=== PATIENT | male | born 1965 | race Caucasian/White ===

== ENCOUNTER → 2018-04-23 13:43 | Outpatient (CLI) | payer OTHER, SELFPAY ==
[2018-04-23 14:22] LABS: Basophils % 0.3 % (0.1-2.0); Eosinophils # 0.1 K/mm3 (0.0-0.4); Eosinophils % 1.8 % (0.1-12.0); Hematocrit 44.1 % (42.0-52.0); Hemoglobin 13.8 g/dL (14.1-18.0); Lymphocytes # 1.8 K/mm3 (0.7-4.5); Lymphocytes % 30.2 % (10-50); Mean Corpuscular HGB Conc 31.3 g/dL (31.8-35.4); Mean Corpuscular Volume 95.9 fl (80-94); Mean Platelet Volume 7.7 fl (7.4-10.4); Monocytes # 0.5 K/mm3 (0.1-1.0); Neutrophils # 3.6 K/mm3 (1.8-7.8); Neutrophils % 59.7 % (37.0-80.0); Platelet Count 396 K/mm3 (142-424); Red Cell Distribution Width 13.9 % (11.5-17.5)
[2018-04-23 14:30] LABS: Amphetamine/Metha Screen,Urine Negative ng/mL (<1000); Barbiturates Screen,Urine Negative ng/mL (<200); Benzodiazepines Screen,Urine Negative ng/mL (<200); Cannabinoid Screen,Urine Negative ng/mL (<50); Cocaine Screen,Urine Negative ng/mL (<300); Methadone Screen,Urine Negative ng/mL (<300); Opiate Screen,Urine Negative ng/mL (<300); Phencyclidine Screen,Urine Negative ng/mL (<25)
[2018-04-23 15:28] LABS: Alanine Aminotransferase 30 U/L (12-78); Albumin Level 3.7 gm/dL (3.4-5.0); Albumin/Globulin Ratio 1.1 (1.1-1.8); Alkaline Phosphatase 96 U/L (46-116); Anion Gap -3.2 mEq/L (5-15); Aspartate Amino Transferase 25 U/L (15-37); Bilirubin,Total 0.2 mg/dL (0.2-1.0); Blood Urea Nitrogen 11 mg/dL (7-18); Calcium 9.1 mg/dL (8.5-10.1); Carbon Dioxide 25 mmol/L (21.0-32.0); Chloride 109 mmol/L (98-107); Cholesterol 313 mg/dL (140-200); Creatinine,Serum 0.86 mg/dL (0.70-1.30); Estimated Glomerular Filt Rate 93 ml/min (>60); Free T4 (Free Thyroxine) 1.05 ng/dl (0.76-1.46); GFR (African American) 112 ML/MIN (>60); Globulin 3.5 gm/dl (1.3-3.2); Glucose 103 mg/dL (74-106); HDL Cholesterol 52 mg/dL (27-67); LDL Cholesterol 231 mg/dL (0-130); Phenytoin (Dilantin) 5.1 ug/mL (10-20); Potassium 4.8 mmoL/L (3.5-5.1); Sodium 126 mmol/L (136-145); Thyroid Stimulating Hormone 1.73 uIU/ml (0.358-3.740); Total Protein,Serum 7.2 gm/dL (6.4-8.2); Triglycerides 151 mg/dL (30-200); VLDL Cholesterol 30 mg/dL (0-40)
[2018-04-25 07:03] LABS: PSA, Free 0.16 ng/mL; Prostate Specific Ag 0.5 ng/mL (0.0-4.0)
== END ==
PROVIDERS: Visit Provider Emergency Medicine
DX: I10 Essential (primary) hypertension (principal); Z79.899 Other long term (current) drug therapy; R56.9 Unspecified convulsions; E78.49 Other hyperlipidemia; I51.9 Heart disease, unspecified; J44.9 Chronic obstructive pulmonary disease, unspecified; G89.29 Other chronic pain; Z72.0 Tobacco use
CPT/HCPCS: 80053; 80061; 80185; 80305; 84153; 84154; 84439; 84443; 85025

== ENCOUNTER → 2018-05-21 14:47 | Outpatient (CLI) | payer OTHER, SELFPAY ==
[2018-05-21 15:15] VITALS: PULSE 68; PULSE 72
== END ==
PROVIDERS: PCP Emergency Medicine; Visit Provider Emergency Medicine
DX: J44.9 Chronic obstructive pulmonary disease, unspecified (principal)
CPT/HCPCS: 94060; 94640

== ENCOUNTER → 2018-06-02 07:45 | Outpatient (CLI) | payer OTHER, SELFPAY ==
--- NOTE | 2018-06-02 07:47 | US_ITS ---
US gallbladder HISTORY: ITS.REASON: RUQ Pain ORDERING PHYSICIAN: Gab Worthington MD PATIENT AGE: 52 years Comparison: None FINDINGS: PANCREAS: Unremarkable. No obvious mass or abnormal fluid collection. No ductal dilatation LIVER: No focal liver lesions demonstrated. Homogeneous echogenicity. No intrahepatic biliary ductal dilatation evident RIGHT KIDNEY: Unremarkable. Normal size and echogenicity. No hydronephrosis GALLBLADDER: No gallstones, gallbladder wall thickening, pericholecystic fluid, or biliary dilatation. There is a small amount gallbladder sludge nonspecific IMPRESSION: Trace gallbladder sludge otherwise essentially negative right upper quadrant
== END ==
PROVIDERS: PCP Emergency Medicine; Visit Provider Emergency Medicine
DX: R10.11 Right upper quadrant pain (principal)
CPT/HCPCS: 76705

== ENCOUNTER → 2018-09-02 10:21 | Outpatient (POV) | payer OTHER, SELFPAY | PROVIDERS: Visit Provider Internal Medicine | DX: Z00.00 Encounter for general adult medical examination without abnormal findings (principal) ==

== ENCOUNTER → 2018-09-16 09:27 | Outpatient (CLI) | payer OTHER, SELFPAY ==
--- NOTE | 2018-09-16 | CI_ITS ---
Cerebrovascular Exam IMPRESSIONS 1. Study suggests 70-99% stenosis involving the left internal carotid artery. 2. Study suggests 50-69% stenosis involving the right internal carotid artery. 3. Study suggests >50% stenosis involving the right external carotid artery and the left external carotid artery. 4. Right side thyroid cyst. Carotid duplex study. Complete study and Doppler flow study including spectral analysis, color and montgomery scale imaging. Height: Height: 165.1cm. Height: 65in. Weight: Weight: 78.9kg. Weight: 173.6lb. Body mass index: BMI: 29kg/m^2. Body surface area: BSA: 1.92m^2. Location: Vascular laboratory. Patient status: Outpatient. CRITICAL FINDINGS - Reported to: [facility] - Read back and verified. - 09/16/18 - 1030 - 70-99% Left ICA pt setup to see Dr Worthington at 09/18/18 at 930. Incidental findings: A thyroid cyst in the right lobe is noted incidentally. Tables: Arterial flow: + +--------+--------+ Location V sys V ed + +--------+--------+ Right CCA - proximal 94.8cm/s 21cm/s + +--------+--------+ Right CCA - distal 90.4cm/s 27cm/s + +--------+--------+ Right ECA 162cm/s -------- + +--------+--------+ Right ICA - proximal 120cm/s 30cm/s + +--------+--------+ Right ICA - mid 145cm/s 31.4cm/s + +--------+--------+ Right ICA - distal 111cm/s 34.7cm/s + +--------+--------+ Right vertebral 44.7cm/s -------- + +--------+--------+ Left CCA - proximal 104cm/s 21cm/s + +--------+--------+ Left CCA - distal 124cm/s 33.3cm/s + +--------+--------+ Left ECA 153cm/s -------- + +--------+--------+ Left ICA - proximal 333cm/s 91.1cm/s + +--------+--------+ Left ICA - mid 243cm/s 88.4cm/s + +--------+--------+ Left ICA - distal 84.5cm/s 30.4cm/s + +--------+--------+ Left vertebral 36.7cm/s -------- + +--------+--------+ Velocity ratios: + + + + + + Right, V sys Right, V ed Left, V sys Left, V ed + + + + + + Max ICA/dist CCA 1.6 1.29 2.69 2.74 + + + + + + (Report amended ) Electronically signed by: Kenyon Ramirez [id number]
--- NOTE | 2018-09-16 10:16 | CT_ITS ---
CT lung screening EXAM: CT LUNG LOW DOSE WO CONTRAST HISTORY: ITS.REASON: CURRENT TOBACCO USE ORDERING PHYSICIAN: Stevie Matute MD PATIENT AGE: 53 years COMPARISON: None TECHNIQUE: The exam was performed on a GE Light Speed [address] scanner using 2.90 mGy CTDI. A low dose helical CT CHEST was performed on a multi-detector scanner. All CT scans at the facility use one or more dose reduction, viz: automated exposure control, ma/kV adjustment per patient size (including targeted exams where dose is matched to indication, i.e. head), or iterative reconstruction technique. The LDCT was performed in a facility that meets the criteria for the screening program. Data regarding this exam was submitted to ACR which is an approved registry. The order for this exam indicates that it came as a result of a lung cancer screening counseling shard decision-making visit that included all the elements required of such a visit including smoking cessation. The radiologist interpreting this exam meets the CMS criteria for the LDCT lung cancer screening program. The exam is reported using the Lung-RADS classification scale and reported to the ACR registry. NOTE: This study was performed for the specific purposes of lung cancer screening and is not an alternative to diagnostic chest CT. RADIATION DOSE: CTDI vol(CT dose Index-volume) = 2.90mG DLP (Dose Length Product) = 107.33 mGcm FINDINGS: There are scattered small mediastinal lymph nodes largest on the left at 1.8 x 1 cm. There are extensive coronary artery calcifications. Some of the mediastinal lymph nodes are calcified. Changes of COPD and centrilobular emphysema with scattered small parenchymal opacities which are nonspecific some of which may be due to scarring. There is coarsening of interstitial markings. There is a spiculated nodular density in the right upper lobe series 4 #36. This measures 10 x 9 mm and has a suspicious appearance. There is an additional spiculated nodular opacity in the right upper lobe laterally at 10 x 8 mm series 4 #41. There are other scattered smaller parenchymal opacities 3 to 5 mm noted. There is a calcified granuloma in the right upper lobe posteriorly. IMPRESSION: 1. Lung RADS Category: 4, suspicious regarding 2 somewhat spiculated opacities in the right upper lobe. This could be due to areas of scarring however neoplasm is an additional consideration 2. Other findings: COPD/centrilobular emphysema. Extensive coronary artery calcification. Mildly prominent mediastinal lymph node on the left RECOMMENDATIONS: PET/CT suggested for further evaluation. If this is not performed then, would at least recommend a [address] follow-up without and with contrast
== END ==
PROVIDERS: PCP Emergency Medicine; Visit Provider Internal Medicine
DX: R09.89 Other specified symptoms and signs involving the circulatory and respiratory systems (principal); Z12.2 Encounter for screening for malignant neoplasm of respiratory organs; Z87.891 Personal history of nicotine dependence
CPT/HCPCS: 93880

== ENCOUNTER → 2018-09-26 10:58 | Outpatient (CLI) | payer OTHER, SELFPAY ==
--- NOTE | 2018-09-26 11:08 | XR_ITS ---
XR shoulder LT min 2V COMPARISON: None HISTORY: Left shoulder pain TECHNIQUE: 3 views left shoulder FINDINGS: The clavicle is intact and the AC joint appears normal. The humeral head and glenoid appear normal and there are no soft tissue calcifications. IMPRESSION: Negative Left shoulder
[2018-09-26 13:23] LABS: Thyroid Stimulating Hormone 1.02 uIU/ml (0.358-3.740)
== END ==
PROVIDERS: Visit Provider Otolaryngology
DX: E04.1 Nontoxic single thyroid nodule (principal); M25.512 Pain in left shoulder
CPT/HCPCS: 36415; 73030; 84439; 84443

== ENCOUNTER → 2019-01-02 14:09 | Outpatient (CLI) | payer OTHER, SELFPAY ==
[2019-01-02 16:07] LABS: Amphetamine/Metha Screen,Urine Negative ng/mL (<1000); Barbiturates Screen,Urine Negative ng/mL (<200); Benzodiazepines Screen,Urine Negative ng/mL (<200); Cannabinoid Screen,Urine Negative ng/mL (<50); Cocaine Screen,Urine Negative ng/mL (<300); Methadone Screen,Urine Negative ng/mL (<300); Opiate Screen,Urine Negative ng/mL (<300); Phencyclidine Screen,Urine Negative ng/mL (<25)
== END ==
PROVIDERS: Visit Provider Nurse Practitioner Family
DX: Z79.899 Other long term (current) drug therapy (principal)
CPT/HCPCS: 80305

== ENCOUNTER → 2019-04-20 13:49 | Outpatient (CLI) | payer OTHER, SELFPAY ==
[2019-04-20 14:30] LABS: Basophils % 0.2 % (0.1-2.0); Eosinophils # 0.1 K/mm3 (0.0-0.4); Eosinophils % 1.8 % (0.1-12.0); Lymphocytes # 2.2 K/mm3 (0.7-4.5); Lymphocytes % 28.9 % (10-50); Mean Corpuscular HGB Conc 31.8 g/dL (31.8-35.4); Mean Corpuscular Hemoglobin 30.2 pg (27.0-31.2); Mean Platelet Volume 8.4 fl (7.4-10.4); Monocytes # 0.6 K/mm3 (0.1-1.0); Monocytes % 7.2 % (1.7-9.3); Neutrophils # 4.7 K/mm3 (1.8-7.8); Neutrophils % 61.7 % (37.0-80.0); Platelet Count 345 K/mm3 (142-424); Red Blood Count 4.32 M/mm3 (4.60-6.20); Red Cell Distribution Width 13.7 % (11.5-17.5); White Blood Count 7.6 K/mm3 (4.8-10.8)
[2019-04-20 15:24] LABS: Alanine Aminotransferase 26 U/L (12-78); Albumin Level 3.7 gm/dL (3.4-5.0); Albumin/Globulin Ratio 1.2 (1.1-1.8); Alkaline Phosphatase 87 U/L (46-116); Anion Gap 14.2 mEq/L (5-15); Aspartate Amino Transferase 27 U/L (15-37); Bilirubin,Total 0.2 mg/dL (0.2-1.0); Blood Urea Nitrogen 7 mg/dL (7-18); Calcium 8.5 mg/dL (8.5-10.1); Carbon Dioxide 23 mmol/L (21.0-32.0); Chloride 102 mmol/L (98-107); Chol/HDL Ratio 3.1 (1-3.5); Cholesterol 159 mg/dL (140-200); Creatinine,Serum 0.75 mg/dL (0.70-1.30); Estimated Glomerular Filt Rate 108 ml/min (>60); GFR (African American) 131 ML/MIN (>60); Globulin 3.1 gm/dl (1.3-3.2); Glucose 95 mg/dL (74-106); HDL Cholesterol 52 mg/dL (27-67); LDL Cholesterol 84 mg/dL (0-130); Phenytoin (Dilantin) 7.9 ug/mL (10-20); Potassium 4.2 mmoL/L (3.5-5.1); Sodium 135 mmol/L (136-145); T4 (Thyroxine) 7.6 ug/dl (4.7-13.3); Thyroid Stimulating Hormone 2.24 uIU/ml (0.358-3.740); Total Protein,Serum 6.8 gm/dL (6.4-8.2); Triglycerides 115 mg/dL (30-200); VLDL Cholesterol 23 mg/dL (0-40)
[2019-04-21 09:20] LABS: Vitamin D 25 Hydroxy 33.6 ng/mL (30.0-100.0)
== END ==
PROVIDERS: Visit Provider Emergency Medicine
DX: M54.2 Cervicalgia (principal); M54.9 Dorsalgia, unspecified; R56.9 Unspecified convulsions; Z79.899 Other long term (current) drug therapy
CPT/HCPCS: 80053; 80061; 80185; 82652; 84436; 84443; 85025

== ENCOUNTER → 2019-04-29 10:18 | Outpatient (CLI) | payer OTHER, SELFPAY ==
--- NOTE | 2019-04-29 10:21 | XR_ITS ---
PROCEDURE: XR HIP LT 2-3V W/PELVIS CLINICAL INDICATION: left hip pain COMPARISON: PELAP PELVIS AP ONLY from 04/19/2014 FINDINGS: No fracture or dislocation. There is slight decrease in the superior hip joint space which may be seen with early osteoarthritis. There is a subtle area curvilinear calcification in the subcortical region of the left femoral head. This is nonspecific but could be seen with avascular necrosis. MRI may be of further value. Sclerotic densities which may represent bone island is present in the right femoral head and in the right intertrochanteric region of the hip. IMPRESSION: 1. Mild osteoarthritis of the left hip. 2. Curvilinear area of sclerosis in the left femoral head. Consider MRI to exclude the possibility of avascular necrosis in this patient with left hip pain Dictated by: Kenyon Ramirez MD 04/29/2019 18:39 Electronically signed by Kenyon Ramirez MD in [place] 04/29/2019 18:39
== END ==
PROVIDERS: PCP Emergency Medicine; Visit Provider Orthopaedic Surgery
DX: M25.552 Pain in left hip (principal)
CPT/HCPCS: 73502

== ENCOUNTER 2019-05-01 15:06 | Outpatient (RCR) | payer OTHER, SELFPAY ==
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
== END 2019-05-01 15:10 | disposition home or self-care (01) ==
LOC: PT 15:06
PROVIDERS: Visit Provider Emergency Medicine
DX: M54.2 Cervicalgia (principal)
CPT/HCPCS: 97163

== ENCOUNTER → 2019-05-08 14:17 | Outpatient (CLI) | payer OTHER, SELFPAY ==
--- NOTE | 2019-05-08 14:22 | MR_ITS ---
PROCEDURE: MR HIP LT WO CON CLINICAL INDICATION: Evaluate for avascular necrosis rec. by Dr Ramirez Bilateral hip pain left worse than right, left leg pain numbness and tingling, abnormal radiograph suggesting avascular necrosis. COMPARISON: XR HIP LT 2-3V W/PELVIS from 04/29/2019 TECHNIQUE: Routine multiplanar multi echo sequences are performed without gadolinium enhancement. FINDINGS: There is a small geographic area of abnormal bone marrow signal intensity in the subcortical region of the left femoral head hyperintense on T2 and hypointense on T1 with a curvilinear configuration. No fracture or dislocation. No significant effusion. There is slight increased T2 signal within the soft tissues at the greater trochanteric region on the left which could be due to mild trochanteric bursitis. IMPRESSION: 1. 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 Possible trochanteric bursitis on the left Dictated by: Kenyon Ramirez MD 05/09/2019 00:57 Electronically signed by Kenyon Ramirez MD in [place] 05/09/2019 08:25
== END ==
PROVIDERS: PCP Emergency Medicine; Visit Provider Orthopaedic Surgery
DX: M25.552 Pain in left hip (principal)
CPT/HCPCS: 73721

== ENCOUNTER → 2019-05-12 08:48 | Outpatient (POV) | payer OTHER, SELFPAY ==
[2019-05-12 09:14] VITALS: BP 133/68; PULSE 63; RESP 18; O2SAT 99; BMI 26.6
--- NOTE | 2019-05-12 11:15 | HMH.PMCON ---
Assessment and Plan (1) Degenerative joint disease (DJD) of lumbar spine Current visit: Yes Status: Chronic Category: Medical Code(s): M47.816 - Spondylosis without myelopathy or radiculopathy, lumbar region (2) Lumbar radiculopathy Current visit: Yes Status: Chronic Category: Medical Code(s): M54.16 - Radiculopathy, lumbar region (3) Neck pain Current visit: Yes Status: Acute Category: Medical Code(s): M54.2 - Cervicalgia (4) Bilateral arm pain Current visit: Yes Status: Acute Category: Medical Code(s): M79.601 - Pain in right arm; M79.602 - Pain in left arm - Assessment and plan all Dx Assessment and Plan for all problems:: We will schedule the patient for a cervical MRI. Patient and I did discuss his MRI of his left hip. Patient is not interested in following up with any orthopedic surgeons at this time. He says he will discuss his MRI results with Dr. Worthington. He would like to undergo cervical MRI, however, and determine a plan of care at that time. Patient and I did discuss that we will not be prescribing oral medications at this time. Patient says he is not interested in injective or interventional therapies. I am concerned that the patient will not follow back up with us after his MRI results. We did, however, schedule him for a return visit. If in the event that he does not follow-up with us, I will suggest Dr. Worthington contact the patient concerning his MRI results. The patient has been instructed to contact the clinic if he has any concerns before his next appointment. Dr. Chinchilla has reviewed this note and agrees with this plan of care. This note was dictated using voice recognition software and make contain errors or omissions. HPI - Data of Consult Patient: new to practice Consult date: 05/12/19 Requesting Physician: Samantha Díaz APRN Primary Care Provider: Gab Worthington MD - Consult Narrative Reason for consult: Low back pain, bilateral leg pain, bilateral arm pain History of present illness: Mr. Hess is a 53 year old male who presents today for complaints of low back pain with radiation into his bilateral legs. Patient says he also has neck pain with radiation into his bilateral arms. Patient says his pain is been ongoing for greater than 10 years. He says the pain has progressively gotten worse. He is unable to stand or walk for more than 5 minutes without developing severe pain with numbness and tingling to his bilateral feet. Patient does says the pain is worse on the left side. He says that he has been medically managed in the past with gabapentin. He says he does not get enough relief with gabapentin unless he is prescribed Percocet with gabapentin. He also says that Dr. Worthington recently ordered him [place], however he says that he is allergic to [place]. Patient later reveals that he has been taking [place] and it has given him some relief, however. Patient says he is not interested in any type of injective or interventional therapies at this time. He says he would prefer to only take oral opiates. He does rate his pain an 8 out of 10 today. He says he has tried physical therapy along with ice and heat therapies and a TENS unit. He says that he cannot withstand any type of injective therapy due to fear of needles. CC: Samantha Díaz APRN [facility] History I have reviewed the patient's past medical history: Yes Medical History: Reports:: Anxiety, Congestive Heart Failure, Chronic Obstructive Pulmonary Disease (COPD), Coronary Artery Disease, Depression, Gastroesophageal Reflux Disease(GERD), Hyperlipidemia, Hypertension, Myocardial Infarction, Seizures *Have you ever received a pneumonia vaccine?: Yes *Have you received a flu vaccine this season?: Yes Other Medical History: Reports: Arthritis Other Surgeries: Yes: Cardiac Catheterization, Coronary Stent Amputation: No Fractures: Yes - *Social History Smoking Status: Never smoker Tobacco Type: cigarettes # Pack
== END ==
PROVIDERS: PCP Emergency Medicine; Visit Provider Clinical Nurse Specialist Family Health
DX: M47.816 Spondylosis without myelopathy or radiculopathy, lumbar region (principal); M54.16 Radiculopathy, lumbar region; M54.2 Cervicalgia; M79.601 Pain in right arm; M79.602 Pain in left arm
CPT/HCPCS: 99202

== ENCOUNTER → 2019-05-26 16:50 | Outpatient (CLI) | payer OTHER, SELFPAY ==
[2019-05-26 18:19] LABS: Amphetamine/Metha Screen,Urine Negative ng/mL (<1000); Barbiturates Screen,Urine Negative ng/mL (<200); Benzodiazepines Screen,Urine Negative ng/mL (<200); Cannabinoid Screen,Urine Negative ng/mL (<50); Cocaine Screen,Urine Negative ng/mL (<300); Methadone Screen,Urine Negative ng/mL (<300); Opiate Screen,Urine Negative ng/mL (<300); Phencyclidine Screen,Urine Negative ng/mL (<25)
== END ==
PROVIDERS: Visit Provider Emergency Medicine
DX: M54.16 Radiculopathy, lumbar region (principal)
CPT/HCPCS: 80305

== ENCOUNTER → 2019-06-17 17:29 | Outpatient (CLI) | payer OTHER, SELFPAY ==
[2019-06-17 19:58] LABS: Amphetamine/Metha Screen,Urine Negative ng/mL (<1000); Barbiturates Screen,Urine Negative ng/mL (<200); Benzodiazepines Screen,Urine Negative ng/mL (<200); Cannabinoid Screen,Urine Negative ng/mL (<50); Cocaine Screen,Urine Negative ng/mL (<300); Methadone Screen,Urine Negative ng/mL (<300); Opiate Screen,Urine Negative ng/mL (<300); Phencyclidine Screen,Urine Negative ng/mL (<25)
== END ==
PROVIDERS: Visit Provider Emergency Medicine
DX: M19.90 Unspecified osteoarthritis, unspecified site (principal); Z79.899 Other long term (current) drug therapy
CPT/HCPCS: 80305

== ENCOUNTER → 2020-02-24 13:41 | Outpatient (CLI) | payer OTHER, SELFPAY ==
--- NOTE | 2020-02-24 13:43 | CA_ITS ---
APPROVED REPORT Kitchen Mechanic: TAMARA Laterality: Bilateral Indications: bruit Risk Factors PROMISE Doppler Spectral Velocity Analysis ECA (R) 182.80/30.70 cm/s ECA (L) 193.60/28.50 cm/s dICA (R) 57.10/20.50 cm/s dICA (L) 109.50/28.50 cm/s Alisia (R) 83.50/27.00 cm/s Alisia (L) 183.90/38.50 cm/s pICA (R) 205.00/35.90 cm/s pICA (L) 543.20/198.10 cm/s dCCA (R) 133.20/25.60 cm/s dCCA (L) 136.60/30.00 cm/s pCCA (R) 107.60/29.50 cm/s pCCA (L) 121.50/30.00 cm/s Vert (R) 61.50/18.80 cm/s Vert (L) 55.70/17.10 cm/s ICA/CCA 1.54 ICA/CCA 3.98 Findings Duplex evaluation demonstrates stenosis of the right proximal internal carotid artery in the range of 50-69% with PSV =140 cm/sec, EDV <100 cm/sec, and IC/CC Ratio <4.0. Duplex evaluation demonstrates stenosis of the left proximal internal carotid artery in the range of 70-99% with PSV =140 cm/sec, EDV =100 cm/sec, or IC/CC Ratio =4.0. Conclusion Duplex evaluation demonstrates stenosis of the right proximal internal carotid artery in the range of 50-69% with PSV =140 cm/sec, EDV <100 cm/sec, and IC/CC Ratio <4.0. Duplex evaluation demonstrates stenosis of the left proximal internal carotid artery in the range of 70-99% with PSV =140 cm/sec, EDV =100 cm/sec, or IC/CC Ratio =4.0. Electronically signed by : Kenyon Ramirez MD 02/24/2020 17:02:19
== END ==
PROVIDERS: PCP Emergency Medicine; Visit Provider Family Medicine
DX: R09.89 Other specified symptoms and signs involving the circulatory and respiratory systems (principal)
CPT/HCPCS: 93880

== ENCOUNTER → 2020-03-09 13:47 | Outpatient (CLI) | payer OTHER, SELFPAY ==
--- NOTE | 2020-03-09 13:50 | XR_ITS ---
PROCEDURE: XR HIP LT 2-3V W/PELVIS CLINICAL INDICATION: left hip pain COMPARISON: CR XR HIP LT 2-3V W/PELVIS from 04/29/2019 MR MR HIP LT WO CON from 05/08/2019 FINDINGS: No acute fracture or dislocation. There is some subtle sclerotic density noted along the head of the femur consistent with avascular necrosis which is not significantly changed.. Small bone island suspected in the intertrochanteric region of the right hip and along the left mid aspect of the sacrum. IMPRESSION: No change sclerosis of the left femoral head subcortical region consistent with avascular necrosis. Dictated by: Kenyon Ramirez MD 03/09/2020 15:15 Kenyon Ramirez MD in [place] 03/09/2020 15:15
== END ==
PROVIDERS: PCP Emergency Medicine; Visit Provider Orthopaedic Surgery
DX: M25.552 Pain in left hip (principal)
CPT/HCPCS: 73502

== ENCOUNTER → 2020-03-30 18:47 | Outpatient (CLI) | payer OTHER, SELFPAY ==
[2020-03-30 19:05] LABS: Basophils % 0.2 % (0.1-2.0); Eosinophils # 0.2 K/mm3 (0.0-0.4); Eosinophils % 2.6 % (0.1-12.0); Hematocrit 41.8 % (42.0-52.0); Hemoglobin 13.7 g/dL (14.1-18.0); Lymphocytes # 2.4 K/mm3 (0.7-4.5); Mean Corpuscular HGB Conc 32.8 g/dL (31.8-35.4); Mean Corpuscular Hemoglobin 31.2 pg (27.0-31.2); Mean Corpuscular Volume 95.4 fl (80-94); Mean Platelet Volume 7.8 fl (7.4-10.4); Monocytes # 0.5 K/mm3 (0.1-1.0); Monocytes % 7.2 % (1.7-9.3); Neutrophils # 4.3 K/mm3 (1.8-7.8); Neutrophils % 58.1 % (37.0-80.0); Platelet Count 299 K/mm3 (142-424); Red Blood Count 4.39 M/mm3 (4.60-6.20); Red Cell Distribution Width 13.8 % (11.5-17.5); White Blood Count 7.5 K/mm3 (4.8-10.8)
[2020-03-30 19:15] LABS: Alanine Aminotransferase 27 U/L (12-78); Albumin Level 4.4 g/dl (3.5-5.0); Albumin/Globulin Ratio 1.6 (1.1-1.8); Alkaline Phosphatase 94 U/L (38-126); Anion Gap 14.4 mEq/L (5-15); Aspartate Amino Transferase 38 U/L (17-59); Bilirubin,Total 0.3 mg/dl (0.2-1.3); Blood Urea Nitrogen 11 mg/dl (9-20); Calcium 9.4 mg/dl (8.4-10.2); Carbon Dioxide 24 mmol/L (22.0-30.0); Chloride 103 mmol/L (98-107); Chol/HDL Ratio 3.7 (1-3.5); Cholesterol 180 mg/dl (140-200); Estimated Glomerular Filt Rate 87 ml/min (>60); GFR (African American) 106 ML/MIN (>60); Globulin 2.7 g/dL (1.3-3.2); Glucose 107 mg/dl (74-100); HDL Cholesterol 49 mg/dl (40-60); Phenytoin (Dilantin) 4.2 ug/ml (10-20); Potassium 4.4 mmoL/L (3.5-5.1); Sodium 137 mmol/L (136-145); Total Protein,Serum 7.1 g/dl (6.3-8.2); Triglycerides 241 mg/dl (30-150); VLDL Cholesterol 48 mg/dL (0-40)
[2020-03-30 19:24] LABS: Direct LDL Cholesterol 105.66 mg/dL (100-129)
[2020-03-30 19:45] LABS: Thyroid Stimulating Hormone 0.97 uIU/mL (0.465-4.68)
[2020-03-30 19:58] LABS: Free T4 (Free Thyroxine) 1.13 ng/dl (0.78-2.19)
== END ==
PROVIDERS: Visit Provider Emergency Medicine
DX: J44.9 Chronic obstructive pulmonary disease, unspecified (principal); E66.3 Overweight; M54.2 Cervicalgia; M87.052 Idiopathic aseptic necrosis of left femur; M54.16 Radiculopathy, lumbar region; Z79.899 Other long term (current) drug therapy; Z72.0 Tobacco use
CPT/HCPCS: 80053; 80061; 80185; 84439; 84443; 85025

== ENCOUNTER 2020-04-12 17:26 | Emergency (ER) | payer OTHER, SELFPAY ==
[2020-04-12 17:38] VITALS: BP 132/86; PULSE 83; RESP 18; TEMP 36.7; O2SAT 97; BMI 28.1
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
[2020-04-12 18:08] VITALS: BP 132/86; PULSE 83; RESP 18; TEMP 36.7; O2SAT 97
== END 2020-04-12 18:09 | disposition home or self-care (01) ==
PROVIDERS: Emergency Provider Emergency Medicine; PCP Emergency Medicine
DX: S06.0X0A Concussion without loss of consciousness, initial encounter (principal); W22.8XXA Striking against or struck by other objects, initial encounter; H53.8 Other visual disturbances; R11.0 Nausea; R42 Dizziness and giddiness; Z88.8 Allergy status to other drugs, medicaments and biological substances
CPT/HCPCS: 99281

== ENCOUNTER → 2020-05-13 15:18 | Outpatient (CLI) | payer OTHER, SELFPAY ==
[2020-05-13 19:42] LABS: Phenytoin (Dilantin) 9.6 ug/ml (10-20)
== END ==
PROVIDERS: Visit Provider Emergency Medicine
DX: R56.9 Unspecified convulsions (principal)
CPT/HCPCS: 80185

== ENCOUNTER 2021-02-25 21:21 | Emergency (ER) | payer OTHER, SELFPAY ==
--- NOTE | 2021-02-25 19:09 | ECG_ITS ---
APPROVED REPORT Exam: Resting ECG HR:83 bpm ECG Measurements Heart Rate 83 AXES ND 180 P 50 QRSd 96 QRS 49 QT 382 T 97 QTc 448 Conclusion Normal sinus rhythm Cannot rule out Anterior infarct, age undetermined T wave abnormality, consider lateral ischemia Abnormal ECG Electronically signed by : Jim Bryant MD 02/26/2021 08:55:48
--- NOTE | 2021-02-25 21:15 | ECG_ITS ---
APPROVED REPORT Exam: Resting ECG HR:86 bpm ECG Measurements Heart Rate 86 AXES IA 178 P 52 QRSd 94 QRS 50 QT 370 T 94 QTc 442 Conclusion Normal sinus rhythm Cannot rule out Anterior infarct, age undetermined Abnormal ECG Electronically signed by : Jim Bryant MD 02/28/2021 17:40:43
[2021-02-25 21:20] VITALS: BP 167/87; PULSE 91; RESP 19; TEMP 37.1; O2SAT 97; BMI 30.7
[2021-02-25 21:54] VITALS: BMI 28.7
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
[2021-02-25 22:05] LABS: Basophils % 0.2 % (0.1-2.0); Chloride 101 mmol/L (98-107); Eosinophils # 0.2 K/mm3 (0.0-0.4); Eosinophils % 1.8 % (0.1-12.0); Hematocrit 41.2 % (42.0-52.0); Hemoglobin 13.4 g/dL (14.1-18.0); Lymphocytes # 2.5 K/mm3 (0.7-4.5); Lymphocytes % 26.8 % (10-50); Mean Corpuscular HGB Conc 32.6 g/dL (31.8-35.4); Mean Corpuscular Hemoglobin 31.4 pg (27.0-31.2); Mean Corpuscular Volume 96.2 fl (80-94); Mean Platelet Volume 7.5 fl (7.4-10.4); Monocytes # 0.7 K/mm3 (0.1-1.0); Monocytes % 7.2 % (1.7-9.3); Neutrophils % 64.1 % (37.0-80.0); Platelet Count 299 K/mm3 (142-424); Red Blood Count 4.28 M/mm3 (4.60-6.20); Red Cell Distribution Width 12.9 % (11.5-17.5); White Blood Count 9.4 K/mm3 (4.8-10.8)
[2021-02-25 22:06] LABS: Potassium 4.2 mmoL/L (3.5-5.1); Sodium 136 mmol/L (136-145)
[2021-02-25 22:08] LABS: Blood Urea Nitrogen 11 mg/dl (9-20); Creatinine Clearance Estimated 105 mL/min (50-200); Estimated Glomerular Filt Rate 77 ml/min (>60); GFR (African American) 93 ML/MIN (>60)
[2021-02-25 22:09] LABS: Anion Gap 14.2 mEq/L (5-15); Calcium 9.2 mg/dl (8.4-10.2); Carbon Dioxide 25 mmol/L (22.0-30.0); Glucose 118 mg/dl (74-100)
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
[2021-02-25 22:32] LABS: Troponin I 0.01 ng/ml (0.00-0.034)
[2021-02-25 22:47] LABS: Erythrocyte Sedimentation Rate 21 mm/hr (0-20)
[2021-02-25 22:57] LABS: Procalcitonin 0.035 ng/mL (0.0-2.0)
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
[2021-02-26 00:46] VITALS: BP 157/81; PULSE 87; RESP 18; TEMP 37.1; O2SAT 97
== END 2021-02-26 00:47 | disposition home or self-care (01) ==
PROVIDERS: Emergency Provider Emergency Medicine; PCP Emergency Medicine
DX: S20.212A Contusion of left front wall of thorax, initial encounter (principal); Y04.2XXA Assault by strike against or bumped into by another person, initial encounter; Y92.9 Unspecified place or not applicable; J44.9 Chronic obstructive pulmonary disease, unspecified; I50.9 Heart failure, unspecified; F41.8 Other specified anxiety disorders; K21.9 Gastro-esophageal reflux disease without esophagitis; E78.5 Hyperlipidemia, unspecified; I10 Essential (primary) hypertension; I25.2 Old myocardial infarction; Z79.899 Other long term (current) drug therapy
CPT/HCPCS: 71046; 71250; 80048; 84145; 84484; 85025; 85651; 86140; 93005; 99283

== ENCOUNTER → 2021-09-22 13:33 | Outpatient (CLI) | payer MEDICARE, OTHER, SELFPAY ==
[2021-09-22 14:21] LABS: Blood Urea Nitrogen 12 mg/dl (9-20); Estimated Glomerular Filt Rate 77 ml/min (>60); GFR (African American) 93 ML/MIN (>60)
== END ==
PROVIDERS: PCP Family Medicine; Visit Provider Family Medicine
DX: Z01.812 Encounter for preprocedural laboratory examination (principal)
CPT/HCPCS: 36415; 82565; 84520

== ENCOUNTER → 2021-10-11 12:47 | Outpatient (CLI) | payer MEDICARE, OTHER, SELFPAY ==
--- NOTE | 2021-10-11 12:47 | CT_ITS ---
FINAL REPORT TECHNIQUE: Thin section axial CT with IV contrast supplemented with multiplanar reconstruction under CT angiogram protocol. This study was performed with techniques to keep radiation doses as low as reasonably achievable (ALARA). Individualized dose reduction techniques using automated exposure control or adjustment of mA and/or kV according to the patient''s size were employed. NASCET criteria was utilized during interpretation. CLINICAL HISTORY: CTA carotid arteries FINDINGS: Aortic arch: Arch shows no significant narrowing. Great vessel origins are widely patent. Right carotid: There is mild 30% stenosis of the right common carotid artery. There is 30% stenosis at the level of the right carotid bulb. The more distal ICA is patent without significant stenosis. The ECA is patent. Left carotid: There is 30-40% diameter stenosis of the left common carotid artery. There is 70-80% stenosis of the left carotid bulb. The more distal ICA is patent. The ECA is patent. Vertebral: The vertebral arteries are codominant without significant stenosis. IMPRESSION: 70-80% stenosis of the left carotid bulb. 30-40% stenosis of the left common carotid artery. Mild 30% stenosis of the right common carotid artery and at the level of the right carotid bulb. Reviewed, Interpreted and Dictated by Wisam Delgado III, MD Transcribed by Carine Cherry Authenticated by Wisam Delgado III, MD on 10/11/2021 03:19:01 PM [facility]
== END ==
PROVIDERS: PCP Family Medicine; Visit Provider Family Medicine
DX: I65.22 Occlusion and stenosis of left carotid artery (principal)
CPT/HCPCS: 70498; Q9967

== ENCOUNTER → 2022-02-20 06:07 | Outpatient (CLI) | payer MEDICARE, OTHER, SELFPAY ==
[2022-02-20 18:55] LABS: Benzodiazepines Screen,Urine Negative ng/ml (<200)
[2022-02-20 18:56] LABS: Amphetamine/Metha Screen,Urine Negative ng/ml (<1000)
[2022-02-20 18:57] LABS: Barbiturates Screen,Urine Negative ng/ml (<200); Cannabinoid Screen,Urine Negative ng/ml (<50)
[2022-02-20 18:58] LABS: Cocaine Screen,Urine Negative ng/ml (<300); Methadone Screen,Urine Negative ng/ml (<300)
[2022-02-20 18:59] LABS: Opiate Screen,Urine Negative ng/ml (<300)
[2022-02-20 19:00] LABS: Phencyclidine Screen,Urine Negative ng/ml (<25)
== END ==
PROVIDERS: PCP Family Medicine; Visit Provider Family Medicine
DX: M47.896 Other spondylosis, lumbar region (principal)
CPT/HCPCS: 80305

== ENCOUNTER → 2023-05-01 14:03 | Outpatient (POV) | payer MEDICARE, OTHER, SELFPAY ==
--- NOTE | 2023-05-01 14:43 | EXP.PAIN.OV ---
HPI Data of Consult Patient: new to practice Consult date: 05/01/23 Requesting Physician: Mariah Moscoso APRN Primary Care Provider: Dionicio Garcia MD Consult Narrative Reason for consult: Left hip pain History of present illness: Mr. Hess is a 57 year old male who presents today as a new patient. He is a referral from [facility]. Today he rates his pain a 9 out of 10. Patient states his pain is all in his left hip. Patient states this is a sharp sensation that is worse with increased ambulation or activity. Patient states that he has had this going on for years however over the last year it has progressively worsened unrelated to any specific trauma. Patient is seeing Dr. Ayala for his hip pain and that he does want to do a total hip replacement however the patient states this has been put on hold due to needing cardiac stents placed. Patient does see Dr. Tiny Mendoza and is on blood thinner daily. Patient states in the past he has tried Tylenol, heat and ice, topicals, muscle relaxers with no improvement. Patient was put on Lortab from a pain clinic in [place] however this caused an allergy and he had to discontinue the medication. Patient does state that he had trouble getting to the appointments in [place] and that is the reason why he switched to our office. Patient is interested in pain management through medication. He is currently prescribed gabapentin 800 mg 4 times a day from an outside provider. He denies any side effects from this medication. His Jayme has been reviewed. CC: Mariah Moscoso APRN [facility] Disclaimer: The information contained in this section may have been updated after the patient was seen, as this information can be updated by other users. Medical History Carotid bruit present Carotid stenosis COPD (chronic obstructive pulmonary disease) Degenerative joint disease (DJD) of lumbar spine Heart disease Hyperlipidemia due to dietary fat intake Hypertension Migraines Overweight (BMI 25.0-29.9) RLS (restless legs syndrome) Seizures Sleep apnea Surgical History H/O heart artery stent Social History Smoking Status: Never smoker alcohol intake: never substance use type: denies use current occupational status: unemployed Travel in the last 8 weeks: None household members: significant other housing: apartment number of children: 4 Review of Systems Review of Systems Review of systems:: pertinent systems reviewed and negative unless documented below Review of systems (narrative): Review of Systems: General: No recent weight changes, no fever, no sleep disturbances Respiratory: No cough, no shortness of air, no recurring pulmonary infections Cardiovascular/peripheral vascular: No chest pain, no palpitations, no edema, no shortness of breath Gastrointestinal: No new onset incontinence, normal bowel movements reported Genitourinary: No new onset incontinence Musculoskeletal: Left hip pain Psychiatric: [Normal mood/affect] Neurological: [Denies weakness in extremities], [denies balance issues] Meds Home Medications and Allergies Home Medications Medication Instructions Recorded Confirmed Type albuterol sulfate 90 mcg/actuation 1 puff inhalation Q4-6H #18 grams 09/12/21 04/15/23 Rx aerosol inhaler hydrocodone 5 mg-acetaminophen 325 1 tab PO BID PRN pain #60 tabs 02/20/22 04/15/23 Rx mg tablet fluticasone 250 mcg-salmeterol 50 1 inh inhalation BID #60 ea 05/30/22 04/15/23 Rx mcg/dose blistr powdr for inhalation (Advair Diskus) potassium chloride 10 mEq See Rx Instructions .Route 08/27/22 04/15/23 Rx tablet,extended release .COMPLEX #90 tabs hydroxyzine pamoate 25 mg capsule See Rx Instructions .Route 02/08/23 04/15/23 Rx .COMPLEX #90 caps aspirin 81 mg tablet,delayed 81 mg PO
[2023-05-01 14:58] VITALS: BP 162/80; PULSE 63; RESP 18; O2SAT 98; BMI 28.1
== END ==
PROVIDERS: PCP Family Medicine; Visit Provider Nurse Practitioner Family
DX: G89.4 Chronic pain syndrome (principal); M25.552 Pain in left hip
CPT/HCPCS: 99202; G0463

== ENCOUNTER 2023-06-11 09:22 | Outpatient (CLI) | payer MEDICARE, OTHER, SELFPAY ==
[2023-06-11 18:53] LABS: Amphetamine/Metha Screen,Urine Negative ng/ml (<1000); Barbiturates Screen,Urine Negative ng/ml (<200); Benzodiazepines Screen,Urine Negative ng/ml (<200); Cannabinoid Screen,Urine Negative ng/ml (<50); Cocaine Screen,Urine Negative ng/ml (<300); Methadone Screen,Urine Negative ng/ml (<300); Opiate Screen,Urine Negative ng/ml (<300); Phencyclidine Screen,Urine Negative ng/ml (<25)
== END 2023-06-11 23:59 ==
PROVIDERS: PCP Nurse Practitioner Family; Visit Provider Nurse Practitioner Family
DX: G89.29 Other chronic pain (principal); Z79.899 Other long term (current) drug therapy
CPT/HCPCS: 80307

== ENCOUNTER 2023-07-09 19:06 | Inpatient (IN) | payer MEDICARE, OTHER, SELFPAY ==
[2023-07-09] VITALS (37 sets, daily range): BP systolic 103–183; BP diastolic 71–146; PULSE 74–91; RESP 20–34; TEMP 36.1–36.6; O2SAT 92–100; BMI 31.3
--- NOTE | 2023-07-09 19:05 | ECG_ITS ---
APPROVED REPORT Exam: Resting ECG HR:94 bpm ECG Measurements Heart Rate 94 AXES CO 172 P 64 QRSd 98 QRS 59 QT 368 T 87 QTc 420 Conclusion SINUS RHYTHM POSSIBLE LEFT ATRIAL ENLARGEMENT [-0.1mV P-WAVE IN V1/V2] NONSPECIFIC T-WAVE ABNORMALITY BORDERLINE ECG INTERPRETATION BASED ON A DEFAULT AGE OF 40 YEARS UNCONFIRMED REPORT Electronically signed by : Jim Bryant MD 07/10/2023 22:43:15
[2023-07-09] MEDS: METHYLPREDNISOLONE SOD SUCC 125MG VIAL 125 MG IV (19:14)
[2023-07-09] MEDS: MAGNESIUM SULFATE IN WATER 2 GM/50 ML PIGGYBACK IV (19:14)
--- NOTE | 2023-07-09 19:16 | XR_ITS ---
PROCEDURE INFORMATION: Exam: XR Chest Exam date and time: 07/09/2023 7:20 PM Age: 58 years old Clinical indication: Shortness of breath; Additional info: SOA TECHNIQUE: Imaging protocol: Radiologic exam of the chest. Views: 1 view. COMPARISON: No relevant prior studies available. FINDINGS: Lungs: Moderate diffuse pulmonary vascular interstitial prominence. Significant airspace disease throughout the bilateral lower lungs. Pleural spaces: Unremarkable. No pleural effusion. No pneumothorax. Heart/Mediastinum: Unremarkable. No cardiomegaly. Bones/joints: Unremarkable. IMPRESSION: Moderate congestive changes with bilateral lower lobe airspace disease concerning for developing pulmonary edema. Infectious pneumonia not excluded
[2023-07-09] MEDS: NITROGLYCERIN IN 5 % DEXTROSE 250 ML 6 MG IV (19:17)
[2023-07-09] MEDS: IPRATROPIUM/ALBUTEROL 3 ML NEB IH ×2 (19:28→23:17)
[2023-07-09 19:30] LABS: Chloride 103 mmol/L (98-107); Potassium 3.8 mmoL/L (3.5-5.1); Sodium 135 mmol/L (136-145)
[2023-07-09 19:31] LABS: Basophils # 0.1 K/mm3 (0-0.2); Basophils % 0.9 % (0.1-2.0); Eosinophils # 0.4 K/mm3 (0.0-0.4); Eosinophils % 3.1 % (0.1-12.0); Hematocrit 44.5 % (42.0-52.0); Hemoglobin 16.8 g/dL (14.1-18.0); Lymphocytes # 4.6 K/mm3 (0.7-4.5); Lymphocytes % 39.2 % (10-50); Mean Corpuscular HGB Conc 37.8 g/dL (31.8-35.4); Mean Corpuscular Hemoglobin 36.2 pg (27.0-31.2); Mean Corpuscular Volume 95.9 fl (80-94); Mean Platelet Volume 8.1 fl (7.4-10.4); Monocytes # 0.7 K/mm3 (0.1-1.0); Monocytes % 5.5 % (1.7-9.3); Neutrophils % 51.3 % (37.0-80.0); Platelet Count 309 K/mm3 (142-424); Red Blood Count 4.65 M/mm3 (4.60-6.20); Red Cell Distribution Width 13.9 % (11.5-17.5); White Blood Count 11.8 K/mm3 (4.8-10.8)
--- NOTE | 2023-07-09 19:31 | ED_ITS ---
Discharge Plan Disposition Patient Disposition: Admitted Prescriptions Prescriptions: No Action albuterol sulfate 90 mcg/actuation HFA aerosol inhaler 1 puff INHALATION Q4-6H Qty: 18 2RF metoprolol tartrate 100 mg tablet 100 mg PO BID 30 Days Qty: 60 0RF fluticasone propion-salmeterol [Advair Diskus] 250-50 mcg/dose blister with device 1 inh inhalation BID Qty: 60 2RF furosemide 20 mg tablet See Rx Instructions .ROUTE .COMPLEX Qty: 30 3RF Dose Instruction: TAKE 1 TABLET BY MOUTH EVERY DAY NEEDED FOR EDEMA Rx Instructions: TAKE 1 TABLET BY MOUTH EVERY DAY NEEDED FOR EDEMA meclizine 12.5 mg tablet 12.5 mg PO BID PRN (Reason: dizziness) 30 Days Qty: 60 2RF nitroglycerin 0.4 mg tablet, sublingual See Rx Instructions .ROUTE .COMPLEX Qty: 25 1RF Dose Instruction: PLACE 1 TABLET UNDER THE TONGUE EVERY 5 TO 15 MINUTES NEEDED FOR CHEST PAIN. DO NOT EXCEED A TOTAL OF 3 DOSES IN 15 MINUTES. Rx Instructions: PLACE 1 TABLET UNDER THE TONGUE EVERY 5 TO 15 MINUTES NEEDED FOR CHEST PAIN. DO NOT EXCEED A TOTAL OF 3 DOSES IN 15 MINUTES. aspirin 81 mg tablet,delayed release (DR/EC) 81 mg PO DAILY 30 Days Qty: 100 3RF amlodipine 10 mg tablet 10 mg PO DAILY 30 Days Qty: 30 2RF atorvastatin 80 mg tablet 80 mg PO DAILY 30 Days Qty: 30 2RF clopidogrel 75 mg tablet 75 mg PO DAILY 30 Days Qty: 30 5RF hydroxyzine pamoate 25 mg capsule See Rx Instructions .ROUTE .COMPLEX Qty: 90 0RF Dose Instruction: TAKE 1 CAPSULE BY MOUTH EVERY 8 HOURS NEEDED Rx Instructions: TAKE 1 CAPSULE BY MOUTH EVERY 8 HOURS NEEDED isosorbide mononitrate 120 mg tablet extended release 24 hr 120 mg PO DAILY 30 Days Qty: 30 0RF lisinopril 5 mg tablet 5 mg PO DAILY 30 Days Qty: 30 2RF mirtazapine 15 mg tablet 15 mg PO HS Qty: 30 1RF paroxetine HCl [Paxil] 30 mg tablet 30 mg PO DAILY Qty: 30 1RF phenytoin sodium extended 100 mg capsule 100 mg PO 5XD Qty: 150 1RF prazosin 2 mg capsule 2 mg PO DAILY 30 Days Qty: 30 0RF gabapentin 800 mg tablet 800 mg PO QID 30 Days Qty: 120 1RF Clinical Impressions Clinical Impression: Acute hypoxic respiratory failure, Acute exacerbation of CHF (congestive heart failure), Acute respiratory distress Discharge ED Provider: Marianna Clark General Adult HPI General Chief complaint: Shortness of Breath/Dyspnea Stated complaint: AMS Time Seen by Provider: 07/09/23 19:07 Mode of Arrival: EMS Source of Information: Patient Limitations: No Limitations Description of Symptoms (Recalled from ER Triage Doc. by RN): 58 yo male presents with CC of respiratory failure. According to EMS patient was found outside of local grocer, hands/knees on the ground. Patient was altered mentally at the time and unable to give a name or situation. EMS performed a 12 lead in the field and found him to possibly have some ST elevation, sent it in to the ED doctor, was reviewed and found not to be the case. Patient was placed on 15lpm NRB, initial SaO2-77% on RA. Brought into ED with no initial known medical history. History of Present Illness HPI narrative: Patient is a 58-year-old male present today with respiratory distress. History is limited secondary to his clinical state. However he states has been short of breath over the last few days. He is unable to tell me if he is having any fevers or chills but does state that he has a history of heart failure and COPD as well. Patient was placed on nonrebreather with oxygen saturations initially in the mid 70s per EMS. Related Data Previous Rx's Medication Instructions Recorded albuterol sulfate 90 mcg/actuation 1 puff inhalation Q4-6H #18 grams 09/12/21 aerosol inhaler fluticasone 250 mcg-salmeterol 50 1 inh inhalation BID #60 ea 05/30/22 mcg/dose blistr powdr for inhalation (Advair Diskus) furosemide 20 mg tablet See Rx Instructions .Route 04/22/23 .COMPLEX #30 tabs meclizine 12.5 mg tablet 12.5 mg PO BID PRN dizziness 30 04/30/23 days #60 tabs nitroglycerin 0.4 mg sublingual See Rx Instructions .Route 04/30/23 tablet .COMPLEX #25 tabs aspirin 81 mg tablet,delayed 81 mg PO DAILY 30 days #100 tabs 05/20/23 release metoprolol tartrate 100 mg tablet 100 mg PO BID 30 days #60 tabs 06/11/23 amlodipine 10 mg tablet 10 mg PO DAILY 30 days #30 tabs 07/04/23 atorvastatin 80 mg tablet 80 mg PO DAILY 30 days #30 tabs 07/04/23 clopidogrel 75 mg tablet 75 mg PO DAILY 30 days #30 tabs 07/04/23 gabapentin 800 mg tablet 800 mg PO QID 30 days #120 tabs 07/04/23 hydroxyzine pamoate 25 mg capsule See Rx Instructions .Route 07/04/23 .COMPLEX #90 caps isosorbide mononitrate 120 mg 120 mg PO DAILY 30 days #30 tabs 07/04/23 tablet,extended release 24 hr lisinopril 5 mg tablet 5 mg PO DAILY 30 days #30 tabs 07/04/23 mirtazapine 15 mg tablet 15 mg PO HS sleep #30 tabs 07/04/23 paroxetine HCl 30 mg tablet (Paxil) 30 mg PO DAILY #30 tabs 07/04/23 phenytoin sodium extended 100 mg 100 mg PO 5XD seizures #150 caps 07/04/23 capsule prazosin 2 mg capsule 2 mg PO DAILY 30 days #30 caps 07/04/23 Allergies Allergy/AdvReac Type Severity Reaction Status Date / Time hydrocodone Allergy shortness Verified 06/11/23 10:21 of breath amitriptyline AdvReac Mild Nausea Verified 06/11/23 10:21 [facility] Disclaimer: The information contained in this section may have been updated after the patient was seen, as this information can be updated by other users. Medical History Carotid bruit present Carotid stenosis COPD (chronic obstructive pulmonary disease) Degenerative joint disease (DJD) of lumbar spine Heart disease Hyperlipidemia due to dietary fat intake Hypertension Migraines Overweight (BMI 25.0-29.9) RLS (restless legs syndrome) Seizures Sleep apnea Surgical History H/O heart artery stent Family History Other Unknown family medical history Social History Smoking Status: Unknown if ever smoked alcohol intake: never substance use type: denies use current occupational status: unemployed Travel in the last 8 weeks: None household members: significant other housing: apartment number of children: 4 ROS Obtained: Yes All systems reviewed & no additional complaints except as documented Physical Exam General General appearance: in distress Respiratory Respiratory exam: Present other (Insignificant respiratory distress tachypneic using accessory muscles poor air movement diffuse wheezing) Cardiovascular Cardiovascular exam: Present tachycardia Neurological Exam Neurological exam: Present alert (Lethargic but responsive nonfocal neurologic exam) Medical Decision Making Jayme Inquiry Pt receiving controlled substance: No Vital Signs: 07/09/23 19:10 07/09/23 19:28 07/09/23 19:28 Temperature 97.3 F L Temperature Source Rectal Pulse Rate 78 91 H Pulse Rate [Right Brachial] 88 Respiratory Rate 34 H Blood Pressure [Right Arm] 163/93 H Blood Pressure Mean [Right Arm] 116 Blood Pressure Source [Right Arm] Automatic Cuff Blood Pressure Position [Right Arm] Sitting 02 Sat by Pulse Oximetry 92 L Oxygen Delivery Method Non-Rebreather Oxygen Flow Rate (LPM) 15 Lab Data Lab results reviewed: Yes I reviewed the patient's lab results. Lab Results 07/09/23 19:07: WBC 11.8 H, RBC 4.65, Hgb 16.8, Hct 44.5, MCV 95.9 H, MCH 36.2 H , MCHC 37.8 H, RDW 13.9, Plt Count 309, MPV 8.1, Neut % (Auto) 51.3, Lymph % ( Auto) 39.2, [place] % (Auto) 5.5, Eos % (Auto) 3.1, Baso % (Auto) 0.9, Neut # (Auto) 6.0, Lymph # (Auto) 4.6 H, [place] # (Auto) 0.7, Eos # (Auto) 0.4, Baso # (Auto) 0.1, Sodium 135 L, Potassium 3.8, Chloride 103, Carbon Dioxide 21 L, An ion Gap 14.8, BUN 11, Creatinine 0.80, Estimated Creat Clear 126, Estimated GFR 99, Est GFR ( Amer) 119, Glucose 250 H, Lactate 3.0 H, Calcium 7.9 L, Total Bilirubin 0.5, AST 49, ALT 36, Alkaline Phosphatase 122, Troponin I < 0.01, NT-Pro-B Natriuret Pep 818 H, Total Protein 7.6, Albumin 4.2, Globulin 3.4 H, Albumin/Globulin Ratio 1.2 07/09/23 19:16: VBG pH 7.18 L, VBG pCO2 48.6, VBG pO2 143.8 H, VBG HCO3 17.8 L, VBG Total CO2 19.3 L, VBG O2 Saturation 98.6 H, VBG Base Excess -10.5 L 07/09/23 19:07 07/09/23 19:07 Orders (Tests/Meds): ED MEDICATIONS Generic Name Dose Route Start Last Admin Trade Name Freq PRN Reason Stop Dose Admin Furosemide 40 mg 07/09/23 20:16 Furosemide 40mg/4ml Vial IV 07/09/23 20:17 ONCE ONE Nitroglycerin/Dextrose 250 mls @ 6 mls/hr 07/09/23 19:30 07/09/23 20:09 Nitroglycerin 50mg/250ml D5w IV 08/08/23 19:29 15 mcg/min .Q24H [place] 4.5 mls/hr Titration Protocol 20 MCG/MIN Discontinued Medications Generic Name Dose Route Start Last Admin Trade Name Freq PRN Reason Stop Dose Admin Albuterol/Ipratropium 3 ml 07/09/23 19:05 07/09/23 19:28 Ipratropium/Albuterol 3 Ml Neb IH 07/09/23 19:06 3 ml ONCE ONE Administration Magnesium Sulfate 2 gm in 50 mls @ 150 mls/hr 07/09/23 19:11 07/09/23 19:14 Magnesium Sulfate 2gm/50ml Premix IV 07/09/23 19:30 150 mls/hr ONCE ONE Administration Methylprednisolone Sodium Succinate 125 mg 07/09/23 19:12 07/09/23 19:14 Methylprednisolone Sod Succ 125mg Vial IV 07/09/23 19:13 125 mg ONCE ONE Administration ORDERS Category Date Time Status POCUS Point of Care (ER Only) Stat Exams 07/09/23 19:07 Taken XR chest portable Stat Exams 07/09/23 19:16 Completed Brain Natriuretic Peptide Stat Lab 07/09/23 19:07 Completed Complete Blood Count Auto Diff Stat Lab 07/09/23 19:07 Completed Comprehensive Metabolic Panel Stat Lab 07/09/23 19:07 Completed Lactic Acid Stat Lab 07/09/23 19:07 Completed Rapid PCR Covid and Flu A/B Stat Lab 07/09/23 19:21 Ordered Troponin I Q3H Lab 07/09/23 22:30 Ordered Troponin I Q3H Lab 07/10/23 01:30 Ordered Troponin I Stat Lab 07/09/23 19:07 Completed Blood Culture Stat Micro 07/09/23 19:10 Received VBG [Venous Blood Gas] Stat RT 07/09/23 19:16 Completed ECG Data Tracing #1: I reviewed this ECG and interpreted as documented below: (Personal interpretation showing ventricular rate of 94 sinus rhythm some Q waves in the anterior precordial leads no acute ischemic changes specifically ST elevations or depressions no T wave inversions noted normal axis) Medical Decision Narrative: Patient is a 58-year-old with a history of heart failure and COPD presenting today in severe respiratory distress he was an extremis when he got here. He was close to needing to be intubated minimally interactive. Initially was unclear as to whether or not this was COPD primarily of heart failure and he was initiated on BiPAP and given Solu-Medrol and some other medications for COPD however after doing a bedside ultrasound (please see procedure note) this is consistent with heart failure with reduced ejection fraction as well as pulmonary edema and hypertensive emergency. He dramatically improved on BiPAP over the period of about an hour he was also started on nitroglycerin infusion and as of 8:20 PM his respiratory rate has normalized he still on BiPAP at this point but likely can come off soon. His sympathetic surge is over at this point he has been given Lasix 40 mg IV for diuresis and his blood pressure is under control at this point. No evidence of pneumonia on his chest x-ray per my personal interpretation but there is what appears to be pulmonary edema and this is consistent with the patient's clinical situation. Spoke with Morteza with hospital medicine who agreed to admit the patient for further evaluation and treatment possible cardiac workup inpatient. Procedures Miscellaneous Procedure Procedure Performed: Limited cardiac ultrasound Indication: Shortness of breath Identified structures: The heart was visualized in the parasternal long axis, parastenal short axis, apical four chamber and subxyphiod views. The IVC was visualized in the short axis and long axis at its entry into the right atrium. Findings: No pericardial effusion there is a moderate to severely depressed LVEF IVC is plethoric but does have respirophasic variation no significant right heart str ain Impression: Heart failure with reduced ejection fraction no pericardial effusion no severe right heart strain Images were saved to permanent archive The study was technically adequate CPT: 07130-89 This study was performed by sc, and I personally interpreted all images/videos. Based on my clinical judgement, these images were adequate and did not necessitate further imaging. Limited lung ultrasound A focused ultrasound exam of the pleural spaces was performed to evaluate for pneumothorax, pulmonary edema, pleural effusion and/or consolidation. The ultrasound was performed with the following indications, as noted in the H&P: Dyspnea Identified structures: Right and left thoracic cavities were examined. Findings: Lung sliding was present bilaterally there are diffuse B-lines in all lung mckee no pleural effusions noted or consolidations Impression: Diffuse B-lines in all lung mckee consistent with pulmonary edema no pleural effusions noted bilaterally Images were saved to permanent archive The study was technically adequate CPT 71064-32 This study was performed by sc, and I personally interpreted all images/videos. Based on my clinical judgement, these images were adequate and did not necessitate further imaging. Critical Care Critical Care Time Critical Care Time: Yes Attestation: On , the high probability of a clinically significant, sudden or life t hreatening deterioration of the following system(s) required my full and direct attention, intervention and personal management. The time I documented below is in addition to time spent performing reported procedures but includes the following listed in this critical care notation. Total Time Total Critical Care Time: 35
[2023-07-09 19:32] LABS: Blood Urea Nitrogen 11 mg/dl (9-20); Creatinine Clearance Estimated 126 mL/min (50-200); Estimated Glomerular Filt Rate 99 ml/min (>60); GFR (African American) 119 ML/MIN (>60)
[2023-07-09 19:33] LABS: Alanine Aminotransferase 36 U/L (12-78); Albumin Level 4.2 g/dl (3.5-5.0); Albumin/Globulin Ratio 1.2 (1.1-1.8); Alkaline Phosphatase 122 U/L (38-126); Anion Gap 14.8 mEq/L (5-15); Aspartate Amino Transferase 49 U/L (17-59); Bilirubin,Total 0.5 mg/dl (0.2-1.3); Calcium 7.9 mg/dl (8.4-10.2); Carbon Dioxide 21 mmol/L (22.0-30.0); Globulin 3.4 g/dL (1.3-3.2); Glucose 250 mg/dl (74-100); Total Protein,Serum 7.6 g/dl (6.3-8.2)
[2023-07-09 19:39] LABS: VBG Base Excess -10.5 mmol/L (-2.4-2.3); VBG HCO3 17.8 mmol/L (23-30); VBG Oxygen Saturation 98.6 % (50-70); VBG PCO2 48.6 mmol/L (35-51); VBG PO2 143.8 mmol/L (28-40); VBG Total CO2 19.3 mmol/L (23-27)
[2023-07-09 19:42] LABS: NT Pro Brain Natriuretic Pep. 818 pg/mL (0-125)
--- NOTE | 2023-07-09 19:42 | PC.NURSE ---
VBG result taken over phone from RT, given to Dr Clark
[2023-07-09 19:45] LABS: VBG PH 7.18 mmol/L (7.31-7.41)
[2023-07-09 19:47] LABS: Troponin I < 0.01 ng/ml (0.00-0.034)
--- NOTE | 2023-07-09 20:15 | PC.NURSE ---
Called RT about High Tidal Alarms going off on pts BiPap. Will states he is aware and has adjusted the settings and will come back down and look at it again. States that the pt is taking big inhalations and it is causing it to alarm. CR
--- NOTE | 2023-07-09 20:23 | EXP.HP ---
History of Present Illness *Admission Date: 07/09/23 *Reason for visit:: SOB *History of present illness: This is a 58-year-old male with PMHx of COPD, CHF, HTN, Seizure, smoker brought in by EMS today with respiratory distress. History is limited secondary to his clinical state. Data obtained form ER documentation and EMS report. At the time of this interview patient seen more alert and cooperative, he states has been short of breath over the last few days. Denies any fevers or chills. Patient was placed on nonrebreather with oxygen saturations initially in the mid 70s per EMS, upgraded to continuos BIPAP. admitted for further treatment and management. [facility] Disclaimer: The information contained in this section may have been updated after the patient was seen, as this information can be updated by other users. Medical History (Updated 07/10/23 @ 11:31 by Davin Nayak MD) Carotid bruit present Carotid stenosis COPD (chronic obstructive pulmonary disease) Degenerative joint disease (DJD) of lumbar spine Heart disease Hyperlipidemia due to dietary fat intake Hypertension Migraines Overweight (BMI 25.0-29.9) Pneumonia RLS (restless legs syndrome) Seizures Sleep apnea Surgical History H/O heart artery stent Family History Other Unknown family medical history Social History (Updated 07/09/23 @ 23:17 by Susan Hussein RN) Smoking Status: Current every day smoker tobacco type: cigarettes packs per day: 1 alcohol intake: never substance use type: denies use current occupational status: unemployed Travel in the last 8 weeks: None household members: significant other housing: apartment number of children: 4 Review of Systems Review of Systems Review of systems:: unable to obtain Meds Home Medications and Allergies Home Medications Medication Instructions Recorded Confirmed Type albuterol sulfate 90 mcg/actuation 1 puff inhalation Q4-6H #18 grams 09/12/21 07/10/23 Rx aerosol inhaler aspirin 81 mg tablet,delayed 81 mg PO DAILY 30 days #100 tabs 05/20/23 07/10/23 Rx release metoprolol tartrate 100 mg tablet 100 mg PO BID 30 days #60 tabs 06/11/23 07/10/23 Rx amlodipine 10 mg tablet 10 mg PO DAILY 30 days #30 tabs 07/04/23 07/10/23 Rx atorvastatin 80 mg tablet 80 mg PO DAILY 30 days #30 tabs 07/04/23 07/10/23 Rx clopidogrel 75 mg tablet 75 mg PO DAILY 30 days #30 tabs 07/04/23 07/10/23 Rx isosorbide mononitrate 120 mg 120 mg PO DAILY 30 days #30 tabs 07/04/23 07/10/23 Rx tablet,extended release 24 hr lisinopril 5 mg tablet 5 mg PO DAILY 30 days #30 tabs 07/04/23 07/10/23 Rx mirtazapine 15 mg tablet 15 mg PO HS sleep #30 tabs 07/04/23 07/10/23 Rx paroxetine HCl 30 mg tablet (Paxil) 30 mg PO DAILY #30 tabs 07/04/23 07/10/23 Rx phenytoin sodium extended 100 mg 100 mg PO 5XD seizures #150 caps 07/04/23 07/10/23 Rx capsule prazosin 2 mg capsule 2 mg PO DAILY 30 days #30 caps 07/04/23 07/10/23 Rx furosemide 20 mg tablet 20 mg PO DAILYP PRN Edema 07/09/23 07/10/23 History hydroxyzine pamoate 25 mg capsule 25 mg PO TIDP PRN Anxiety 07/09/23 07/10/23 History meclizine 12.5 mg tablet 12.5 mg PO BIDP PRN Dizziness 07/09/23 07/10/23 History nitroglycerin 0.4 mg sublingual 0.4 mg sublingual Q5MINP PRN Chest 07/09/23 07/10/23 History tablet Pain trazodone 50 mg tablet 50 mg PO HS 07/09/23 07/10/23 History gabapentin 800 mg tablet 800 mg PO QID Pain 07/10/23 07/10/23 History New Prescriptions to Start Prescriptions: Allergies Allergy/AdvReac Type Severity Reaction Status Date / Time hydrocodone Allergy shortness Verified 06/11/23 10:21 of breath amitriptyline AdvReac Mild Nausea Verified 06/11/23 10:21 Exam Data for Last 24 hours Vital signs and Labs for Last 24 Hours: Temp Pulse Resp BP Pulse Ox O2 Del Method O2 Flow Rate 97.3 F L 91 H 34 H 163/93 H 92 L Non-Rebreather 15 07/09/23 19:10 07/09/23 19:28 07/09/23 19:10 07/09/23 19:10 07/09/23 19:10 07/09/23 19:10 07/09/23 19:10 Laboratory Results - last 24 hr 07/09/23 19:07: WBC 11.8 H, RBC 4.65, Hgb 16.8, Hct 44.5, MCV 95.9 H, MCH 36.2 H, MCHC 37.8 H, RDW 13.9, Plt Count 309, MPV 8.1, Neut % (Auto) 51.3, Lymph % (Auto) 39.2, [place] % (Auto) 5.5, Eos % (Auto) 3.1, Baso % (Auto) 0.9, Neut # (Auto) 6.0, Lymph # (Auto) 4.6 H, [place] # (Auto) 0.7, Eos # (Auto) 0.4, Baso # (Auto) 0.1, Sodium 135 L, Potassium 3.8, Chloride 103, Carbon Dioxide 21 L, Anion Gap 14.8, BUN 11, Creatinine 0.80, Estimated Creat Clear 126, Estimated GFR 99, Est GFR ( Amer) 119, Glucose 250 H, Lactate 3.0 H, Calcium 7.9 L, Total Bilirubin 0.5, AST 49, ALT 36, Alkaline Phosphatase 122, Troponin I < 0.01, NT-Pro-B Natriuret Pep 818 H, Total Protein 7.6, Albumin 4.2, Globulin 3.4 H, Albumin/Globulin Ratio 1.2 07/09/23 19:16: VBG pH 7.18 L, VBG pCO2 48.6, VBG pO2 143.8 H, VBG HCO3 17.8 L, VBG Total CO2 19.3 L, VBG O2 Saturation 98.6 H, VBG Base Excess -10.5 L I & O for Last 24 hours: Intake & Output 07/06/23 07/07/23 07/08/23 07/09/23 23:59 23:59 23:59 23:59 Intake Total 2.30 / 2.30 Balance 2.30 / 2.30 Weight 90.718 kg Constitutional Constitutional: moderate distress and somnolent *Routine HEENT Exam Head: Present normocephalic and atraumatic Eye: Present EOMI, PERRL and normal accommodation ENT: Present mucous membranes moist *Routine Neck Exam Neck: Present supple, full ROM and trachea midline *Routine Respiratory Exam Respiratory: Present decreased breath sounds, CTA bilaterally, prolonged expiratory phase, rales, respiratory distress, wheezes and symmetric chest movement *Routine Cardiovascular Exam Cardiovascular: Present RRR, Normal S1, Normal S2 and tachycardia *Routine Abdominal Exam Abdominal: Present soft and normoactive bowel sounds; Absent organomegaly *Routine Rectal Exam Rectal:: deferred *Routine Genitalia Exam Genitalia:: deferred *Routine Extremities Exam Extremities: Present full ROM and pulses intact; Absent cyanosis, clubbing or edema *Routine Skin Exam Skin: Present intact, dry and warm *Routine Neurological Exam Neurological: Present altered mental status Routine Psychiatric Exam Psychiatric: Present unable to assess H&P: Result Imaging and Cardiology EKG: Status: image reviewed by me and Preliminary report Chest x-ray: Status: image reviewed by me, Preliminary report and final report Assessment and Plan *Assessment and plan (1) Acute hypoxic respiratory failure: Status: Acute Category: Medical Code(s): J96.01 - Acute respiratory failure with hypoxia (2) Pulmonary edema with congestive heart failure: Status: Acute Category: Medical Code(s): I50.1 - Left ventricular failure, unspecified (3) Elevated troponin: Status: Acute Category: Medical Code(s): R79.89 - Other specified abnormal findings of blood chemistry (4) Acute exacerbation of CHF (congestive heart failure): Status: Acute Qualifiers: Heart failure type: unspecified Qualified Code(s): I50.9 - Heart failure, unspecified Category: Medical Code(s): I50.9 - Heart failure, unspecified (5) Hypertension: Status: Acute Qualifiers: Hypertension type: essential hypertension Qualified Code(s): I10 - Essential (primary) hypertension Category: Medical Code(s): I10 - Essential (primary) hypertension (6) Hyperlipidemia: Status: Acute Qualifiers: Hyperlipidemia type: unspecified Qualified Code(s): E78.5 - Hyperlipidemia, unspecified Category: Medical Code(s): E78.5 - Hyperlipidemia, unspecified (7) Seizures: Status: Acute Category: Medical Code(s): R56.9 - Unspecified convulsions (8) Tobacco use: Status: Acute Category: Social Hx Code(s): Z72.0 - Tobacco use Plan 58-year-old male with PMHx of COPD, CHF, HTN, Seizure, smoker brought in by EMS today with respiratory distress. on arrival patient presented on visible severe respiratory distress. CXR and bedside US concerning for pulmonary edema. he was placed on BIPAP. Improved. Started on nitroglycerin infusion and as of 8:20 PM his respiratory rate has normalized he still on BiPAP. He has been given Lasix 40 mg IV for diuresis and his blood pressure is under control at this point. No evidence of pneumonia on his chest x-ray per my personal interpretation but there is what appears to be pulmonary edema. discussed with ER for admission. Plan as follow: -Acute hypoxic respiratory failure, secondary to pulmonary edema, in the setting of exacerbation of congestive heart failure: Admit patient. Dispo stepdown Patient on continuous BiPAP Continue nitroglycerin infusion. Titrate down Critical care consult Repeat ABG Lasix 40 mg IV given. Monitor for renal output Keep n.p.o. Chest x-ray reviewed May need formal echocardiogram -Elevated troponin: probably likely due to oxygen demand. Obtain serial troponin Cardiology consult Monitor for chest pain Cardiac telemetry. -HTN. hyperlipidemia: Continue monitor. Patient on lisinopril metoprolol aspirin atorvastatin and amlodipine Reconcile and resume History of seizure: Resume phenytoin Tobacco use: Nicotine patch Patient on Plavix. Protonix for GERD Full code Attending attestation Patient was seen and evaluated at the bedside myself, agree with KARLA note.
--- NOTE | 2023-07-09 20:46 | PC.NURSE ---
attempted to call report
--- NOTE | 2023-07-09 20:48 | PC.NURSE ---
called and updated sister Payton Koroma at [phone] with Patient's permission.
--- NOTE | 2023-07-09 21:00 | PC.NURSE ---
report called to mellissa copeland
[2023-07-09 21:02] LABS: Coronavirus 19, PCR Not Detected (NotDetected); Influenza A, PCR Not Detected (NotDetected); Influenza B, PCR Not Detected (NotDetected)
[2023-07-09] MEDS: FUROSEMIDE 40MG/4ML VIAL 40 MG IV (21:54)
[2023-07-09] MEDS: ENOXAPARIN 40MG/0.4ML SYRINGE 40 MG SQ (21:54)
[2023-07-09 23:04] LABS: Troponin I 0.17 ng/ml (0.00-0.034)
--- NOTE | 2023-07-09 23:15 | PC.NURSE ---
EQ, SUPERVISING ARCHITECT NOTIFIED OF ELEVATED TROP RESULT
[2023-07-09 23:23] LABS: ABG HCO3 21.9 mmhg (22.0-26.0); ABG Oxygen Saturation 96 % (90-100); ABG PCO2 36.6 mmhg (35.0-45.0); ABG PO2 79.4 mmhg (80-100)
[2023-07-09 23:24] LABS: Reflex Lactic Add Lactic Reflex
[2023-07-10] VITALS (25 sets, daily range): BP systolic 111–139; BP diastolic 74–88; PULSE 71–92; RESP 17–24; TEMP 36.1–36.8; O2SAT 90–98; BMI 28.0
[2023-07-10 00:02] LABS: Lactic Acid Follow Up (RFLX 1) 3.1 mmol/L (0.7-2.1)
[2023-07-10 01:24] LABS: Reflex Lactic (2 hrs) Add Lactic Reflex
[2023-07-10 01:53] LABS: Lactic Acid Follow up (RFLX 2) 2.6 mmol/L (0.7-2.1)
[2023-07-10 02:01] LABS: Troponin I 0.21 ng/ml (0.00-0.034)
[2023-07-10] MEDS: DOXYCYCLINE HYCLATE 100 MG in 0.9 % SODIUM CHLORIDE 250 ML 166.667000000000002 MG IV (04:45)
[2023-07-10] MEDS: IPRATROPIUM/ALBUTEROL 3 ML NEB IH (06:20)
[2023-07-10 06:38] LABS: ABG HCO3 21.1 mmhg (22.0-26.0); ABG PCO2 32.9 mmhg (35.0-45.0); ABG PH 7.42 mmol/L (7.35-7.45); ABG PO2 90.7 mmhg (80-100)
[2023-07-10 06:39] LABS: ABG Base Excess -3.4 mmol/L (-2.4-2.3); ABG Oxygen Saturation 98 % (90-100); ABG TCO2 22.1 mmhg (23-27); Allen's Test ACCEPTABLE; Oxygen 45 %; Source R RADIAL; Tidal Volume 16/8
[2023-07-10 07:15] LABS: Mean Corpuscular Volume 94.7 fl (80-94)
[2023-07-10 07:19] LABS: Alanine Aminotransferase 37 U/L (12-78); Albumin Level 3.7 g/dl (3.5-5.0); Albumin/Globulin Ratio 1.2 (1.1-1.8); Alkaline Phosphatase 102 U/L (38-126); Anion Gap 10.8 mEq/L (5-15); Aspartate Amino Transferase 48 U/L (17-59); Bilirubin,Total 0.4 mg/dl (0.2-1.3); Blood Urea Nitrogen 14 mg/dl (9-20); Calcium 8.4 mg/dl (8.4-10.2); Carbon Dioxide 23 mmol/L (22.0-30.0); Chloride 105 mmol/L (98-107); Creatinine Clearance Estimated 128 mL/min (50-200); Estimated Glomerular Filt Rate 115 ml/min (>60); GFR (African American) 139 ML/MIN (>60); Glucose 139 mg/dl (74-100); Magnesium 2.1 mg/dl (1.6-2.3); Potassium 4.8 mmoL/L (3.5-5.1); Sodium 134 mmol/L (136-145); Total Protein,Serum 6.7 g/dl (6.3-8.2)
[2023-07-10 07:35] LABS: Basophils % 0.3 % (0.1-2.0); Hematocrit 43.7 % (42.0-52.0); Lymphocytes # 1.5 K/mm3 (0.7-4.5); Lymphocytes % 12.5 % (10-50); Mean Corpuscular HGB Conc 33.9 g/dL (31.8-35.4); Mean Corpuscular Hemoglobin 32.1 pg (27.0-31.2); Mean Platelet Volume 8.1 fl (7.4-10.4); Monocytes # 0.7 K/mm3 (0.1-1.0); Monocytes % 5.7 % (1.7-9.3); Neutrophils # 9.9 K/mm3 (1.8-7.8); Neutrophils % 81.5 % (37.0-80.0); Platelet Count 294 K/mm3 (142-424); Red Blood Count 4.61 M/mm3 (4.60-6.20); Red Cell Distribution Width 13.9 % (11.5-17.5); White Blood Count 12.2 K/mm3 (4.8-10.8)
--- NOTE | 2023-07-10 07:52 | HMH.PHAINT1 ---
Pharmacy Intervention Comments: MEDICATION RECONCILIATION COMPLETED ON PATIENT USING EXTERNAL FILL HISTORY FORM PHARMACY AND LIST FROM PCP OFFICE. -MARLENE RODRIGUEZ, [facility]
[2023-07-10 08:05] LABS: Hemoglobin 14.8 g/dL (14.1-18.0)
[2023-07-10] MEDS: LISINOPRIL 5MG TABLET 5 MG PO (08:21)
[2023-07-10] MEDS: CLOPIDOGREL 75MG TAB 75 MG PO (08:21)
[2023-07-10] MEDS: PHENYTOIN 100MG CAPSULE 100 MG PO ×2 (08:21→12:58)
[2023-07-10] MEDS: ASPIRIN EC 81MG TABLET 81 MG PO (08:21)
[2023-07-10] MEDS: ENOXAPARIN 40MG/0.4ML SYRINGE 40 MG SQ (08:21)
[2023-07-10] MEDS: PARoxetine 20MG TABLET 30 MG PO (08:22)
[2023-07-10] MEDS: ATORVASTATIN 40MG TABLET 80 MG PO (08:24)
[2023-07-10] MEDS: AMLODIPINE 10MG TABLET 10 MG PO (08:24)
--- NOTE | 2023-07-10 09:20 | P.CONCA_ITS ---
History of Present Illness History of Present Illness Consult date: 07/10/23 Requesting physician: Hanna Tijerina Consult reason: shortness of breath Chief complaint: SOA, HTN Additional Medical History:: 1. Carotid artery disease A. Neck CTA, 10/11/2021, 70 to 80% stenosis of the left carotid bulb. 30 to 40% stenosis of LICA. Mild 30% stenosis of the right common carotid artery at the level of the right carotid bulb. 2. Smoker A. Chest CT, 02/25/2021, bilateral emphysema with multifocal nodular and groundglass pulmonary opacities bilaterally measuring up to 6 mm. 3. Coronary artery calcifications on chest CT, 2020 4. History of CHF 5. Seizure disorder 6. Hypertension History of present illness: 58-year-old male with history of hypertension, CHF, COPD and seizure disorder brought to the emergency department for increasing shortness of breath with altered mental status and initial SaO2 of 77% by EMS. Treated with supplemental oxygen and transported to ER. Per ER records patient was an extremis when he arrived to the ER and was close to needing intubation. He was started on BiPAP therapy and given Solu-Medrol along with other COPD medications. After an hour patient did improve on BiPAP and was started on nitroglycerin infusion for pulmonary edema and hypertensive emergency. He did respond well with IV Lasix having over 1100 mL of output of urine overnight. Patient relates he has been out of his medications for a couple of weeks and has been severely depressed since his son was in a motor vehicle accident 9 months ago in which someone involved in the accident . He denies any chest pain, pressure or tightness but just relates increasing dyspnea over the last couple of days in the setting of no medications patient was on nonrebreather which was upgraded to BiPAP overnight but currently is on 3 LPM by nasal cannula. Chest x-ray on admission showed moderate congestive changes bilaterally with concern for pulmonary edema. Infectious pneumonia not excluded. BNP 818 Troponin initially normal then jaron to 0.17 and 0.21 respectively. Echocardiogram pending [facility] Disclaimer: The information contained in this section may have been updated after the patient was seen, as this information can be updated by other users. Medical History (Updated 07/10/23 @ 11:31 by Davin Nayak MD) Carotid bruit present Carotid stenosis COPD (chronic obstructive pulmonary disease) Degenerative joint disease (DJD) of lumbar spine Heart disease Hyperlipidemia due to dietary fat intake Hypertension Migraines Overweight (BMI 25.0-29.9) Pneumonia RLS (restless legs syndrome) Seizures Sleep apnea Surgical History H/O heart artery stent Family History Other Unknown family medical history Social History (Updated 07/09/23 @ 23:17 by Susan Hussein RN) Smoking Status: Current every day smoker tobacco type: cigarettes packs per day: 1 alcohol intake: never substance use type: denies use current occupational status: unemployed Travel in the last 8 weeks: None household members: significant other housing: apartment number of children: 4 Review of Systems Review of Systems Review of systems:: pertinent systems reviewed and negative unless documented below *Cardiovascular Cardiovascular: Denies chest pain and Reports dyspnea *Respiratory Respiratory: Reports dyspnea Psychiatric Psychiatric: Reports depression Exam Data for Last 24 hours Vital signs and Labs for Last 24 Hours: Temp Pulse Resp BP Pulse Ox O2 Del Method O2 Flow Rate 98.3 F 89 18 116/75 90 L Nasal Cannula 3 07/10/23 07:44 07/10/23 07:26 07/10/23 07:26 07/10/23 07:26 07/10/23 07:26 07/10/23 09:00 07/10/23 09:00 FiO2 45 07/10/23 06:20 Laboratory Results - last 24 hr 07/09/23 19:07: WBC 11.8 H, RBC 4.65, Hgb 16.8, Hct 44.5, MCV 95.9 H, MCH 36.2 H , MCHC 37.8 H, RDW 13.9, Plt Count 309, MPV 8.1, Neut % (Auto) 51.3, Lymph % (Auto) 39.2, [place] % (Auto) 5.5, Eos % (Auto) 3.1, Baso % (Auto) 0.9, Neut # (Auto) 6.0, Lymph # (Auto) 4.6 H, [place] # (Auto) 0.7, Eos # (Auto) 0.4, Baso # (Auto) 0.1, Sodium 135 L, Potassium 3.8, Chloride 103, Carbon Dioxide 21 L, Anion Gap 14.8, BUN 11, Creatinine 0.80, Estimated Creat Clear 126, Estimated GFR 99, Est GFR ( Amer) 119, Glucose 250 H, Lactate 3.0 H, Calcium 7.9 L, Total Bilirubin 0.5, AST 49, ALT 36, Alkaline Phosphatase 122, Troponin I < 0.01, NT-Pro-B Natriuret Pep 818 H, Total Protein 7.6, Albumin 4.2, Globulin 3.4 H, Albumin/Globulin Ratio 1.2 07/09/23 19:16: VBG pH 7.18 L, VBG pCO2 48.6, VBG pO2 143.8 H, VBG HCO3 17.8 L, VBG Total CO2 19.3 L, VBG O2 Saturation 98.6 H, VBG Base Excess -10.5 L 07/09/23 21:00: SARS-CoV-2 (PCR) Not detected, Influenza A Untype (PCR) Not detected, Influenza Type B (PCR) Not detected 07/09/23 22:26: Troponin I 0.17 H 07/09/23 23:30: ABG pH 7.40, ABG pCO2 36.6, ABG pO2 79.4 L, ABG HCO3 21.9 L, ABG Total CO2 23.0, ABG O2 Saturation 96, ABG Base Excess -3.0 L 07/09/23 23:48: Lactate 3.1 H 07/10/23 01:35: Lactate 2.6 H, Troponin I 0.21 H 07/10/23 06:37: Specimen Source R radial, O2 % 45, ABG pH 7.42, ABG pCO2 32.9 L, ABG pO2 90.7, ABG HCO3 21.1 L, ABG Total CO2 22.1 L, ABG O2 Saturation 98, ABG Base Excess -3.4 L, [place] Test Acceptable, Tidal Volume 16/8 07/10/23 06:46: WBC 12.2 H, RBC 4.61, Hgb 14.8 D, Hct 43.7, MCV 94.7 H, MCH 32.1 H, MCHC 33.9, RDW 13.9, Plt Count 294, MPV 8.1, Neut % (Auto) 81.5 H, Lymph % (Auto) 12.5, [place] % (Auto) 5.7, Eos % (Auto) 0.0 L, Baso % (Auto) 0.3, Neut # (Auto) 9.9 H, Lymph # (Auto) 1.5, [place] # (Auto) 0.7, Eos # (Auto) 0.0, Baso # (Auto) 0.0, Sodium 134 L, Potassium 4.8 D, Chloride 105, Carbon Dioxide 23, Anion Gap 10.8, BUN 14 D, Creatinine 0.70, Estimated Creat Clear 128, Estimated GFR 115, Est GFR ( Amer) 139, Glucose 139 H D, Calcium 8.4, Magnesium 2.1, Total Bilirubin 0.4, AST 48, ALT 37, Alkaline Phosphatase 102, Total Protein 6.7, Albumin 3.7 D, Globulin 3.0, Albumin/Globulin Ratio 1.2 I & O for Last 24 hours: Intake & Output 07/07/23 07/08/23 07/09/23 07/10/23 11:59 11:59 11:59 11:59 Intake Total 157.00 / 157.00 Output Total 1300 / 1300 Balance -1143.00 / -1143.00 Weight 178 lb 6.4 oz Constitutional Constitutional: no acute distress *Routine Neck Exam Neck: Present carotid bruit *Routine Respiratory Exam Respiratory: Present decreased breath sounds and CTA bilaterally *Routine Cardiovascular Exam Cardiovascular: Present RRR *Routine Extremities Exam Extremities: Absent edema *Routine Neurological Exam Neurological: Present alert, oriented X3 and CN II-XII intact Meds Home Medications and Allergies Home Medications Medication Instructions Recorded Confirmed Type albuterol sulfate 90 mcg/actuation 1 puff inhalation Q4-6H #18 grams 09/12/21 07/10/23 Rx aerosol inhaler aspirin 81 mg tablet,delayed 81 mg PO DAILY 30 days #100 tabs 05/20/23 07/10/23 Rx release metoprolol tartrate 100 mg tablet 100 mg PO BID 30 days #60 tabs 06/11/23 07/10/23 Rx amlodipine 10 mg tablet 10 mg PO DAILY 30 days #30 tabs 07/04/23 07/10/23 Rx atorvastatin 80 mg tablet 80 mg PO DAILY 30 days #30 tabs 07/04/23 07/10/23 Rx clopidogrel 75 mg tablet 75 mg PO DAILY 30 days #30 tabs 07/04/23 07/10/23 Rx isosorbide mononitrate 120 mg 120 mg PO DAILY 30 days #30 tabs 07/04/23 07/10/23 Rx tablet,extended release 24 hr lisinopril 5 mg tablet 5 mg PO DAILY 30 days #30 tabs 07/04/23 07/10/23 Rx mirtazapine 15 mg tablet 15 mg PO HS sleep #30 tabs 07/04/23 07/10/23 Rx paroxetine HCl 30 mg tablet (Paxil) 30 mg PO DAILY #30 tabs 07/04/23 07/10/23 Rx phenytoin sodium extended 100 mg 100 mg PO 5XD seizures #150 caps 07/04/23 07/10/23 Rx capsule prazosin 2 mg capsule 2 mg PO DAILY 30 days #30 caps 07/04/23 07/10/23 Rx furosemide 20 mg tablet 20 mg PO DAILYP PRN Edema 07/09/23 07/10/23 History hydroxyzine pamoate 25 mg capsule 25 mg PO TIDP PRN Anxiety 07/09/23 07/10/23 History meclizine 12.5 mg tablet 12.5 mg PO BIDP PRN Dizziness 07/09/23 07/10/23 History nitroglycerin 0.4 mg sublingual 0.4 mg sublingual Q5MINP PRN Chest 07/09/23 07/10/23 History tablet Pain trazodone 50 mg tablet 50 mg PO HS 07/09/23 07/10/23 History gabapentin 800 mg tablet 800 mg PO QID Pain 07/10/23 07/10/23 History New Prescriptions to Start Prescriptions: Allergies Allergy/AdvReac Type Severity Reaction Status Date / Time hydrocodone Allergy shortness Verified 06/11/23 10:21 of breath amitriptyline AdvReac Mild Nausea Verified 06/11/23 10:21 Assessment and Plan *Assessment and plan (1) Pulmonary edema with congestive heart failure: Status: Acute Category: Medical Code(s): I50.1 - Left ventricular failure, unspecified (2) Elevated troponin: Status: Acute Category: Medical Code(s): R79.89 - Other specified abnormal findings of blood chemistry (3) Acute hypoxic respiratory failure: Status: Acute Category: Medical Code(s): J96.01 - Acute respiratory failure with hypoxia (4) COPD (chronic obstructive pulmonary disease): Status: Acute Qualifiers: COPD type: unspecified COPD Qualified Code(s): J44.9 - Chronic obstructive pulmonary disease, unspecified Category: Medical Code(s): J44.9 - Chronic obstructive pulmonary disease, unspecified (5) Hyperlipidemia: Status: Acute Qualifiers: Hyperlipidemia type: unspecified Qualified Code(s): E78.5 - Hyperlipidemia, unspecified Category: Medical Code(s): E78.5 - Hyperlipidemia, unspecified (6) Claudication of both lower extremities: Status: Acute Category: Medical Code(s): I73.9 - Peripheral vascular disease, unspecified (7) Hypertension: Status: Acute Qualifiers: Hypertension type: essential hypertension Qualified Code(s): I10 - Essential (primary) hypertension Category: Medical Code(s): I10 - Essential (primary) hypertension (8) Seizures: Status: Acute Category: Medical Code(s): R56.9 - Unspecified convulsions (9) Carotid stenosis: Status: Acute Qualifiers: Laterality: bilateral Qualified Code(s): I65.23 - Occlusion and stenosis of bilateral carotid arteries Category: Medical Code(s): I65.29 - Occlusion and stenosis of unspecified carotid artery (10) Tobacco use: Status: Acute Category: Social Hx Code(s): Z72.0 - Tobacco use Plan 1. Acute hypoxic respiratory failure likely due to medication noncompliance -Currently on supplemental oxygen by nasal cannula at 3 L/min with oxygen saturation greater than 90% 2. Hypertensive emergency -Controlled on IV nitroglycerin but will begin reinstituting home medications and weaning this off 3. Congestive heart failure -Responded well to IV Lasix last night. Will repeat this AM. -Echocardiogram pending at this time 4. Elevated troponins in the setting of acute hypoxia -Known coronary artery calcifications on previous CT -Continue aspirin, statin, Plavix, isosorbide, amlodipine and metoprolol - needs cardiac cath but patient hesistant 5. History of seizure disorder -Resume home antiseizure meds 6. Hyperlipidemia -Resume statin therapy 7. Emphysema with continued tobacco use -Nicotine patch Will review echo and provide further recommendations Wean off Nitro gtt. EKG shows sinus rhythm with old anterior MA with T wave inversion. 13:00 PM Pt is now off Nitro gtt with BP around 140/90 mm Hg. No chest pain or SOA. Ambulated in room without oxygen with O2 sat at 89-90%. Discussed results of echo showing apical hypokinesis with concern for apical thrombus with patient. Recommend he stay for further evaluation and treatment. He is adament that he is leaving AMA and going home to talk to his son. He will consider coming back for further evaluation after that. Home medication recommendations: Metoprolol tartrate 100 mg twice daily Lisinopril 5 mg daily Atorvastatin 80 mg daily Aspirin 81 mg daily Amlodipine 10 mg daily Plavix 75 mg daily Furosemide 20 mg daily Recommend holding or stopping isosorbide and minipress.
--- NOTE | 2023-07-10 09:46 | PC.NURSE ---
pt's oxygen 95% on 3LNC, titrated to 2LNC at this time.
--- NOTE | 2023-07-10 09:50 | ECG_ITS ---
APPROVED REPORT Exam: Resting ECG HR:86 bpm ECG Measurements Heart Rate 86 AXES KS 156 P 45 QRSd 94 QRS 37 QT 419 T 83 QTc 462 Conclusion SINUS RHYTHM Inferior Q waves of borderline significance Anteroseptal changes are previously noted UNCONFIRMED REPORT Electronically signed by : Jim Bryant MD 07/10/2023 22:40:33
--- NOTE | 2023-07-10 09:54 | P.CONS_ITS ---
History of Present Illness History of present illness: Mr. Hess is a 66-year-old male greater than [id number] smoking history, not using any oxygen supplementation at home, on Trelegy inhaler along with albuterol on as-needed basis, with reported history of COPD, CHF, hypertension, seizure disorder presented to the ER with worsening respiratory distress and pulmonary was called for further evaluation and management. Patient admission found to be hypoxic and was initiated on BiPAP therapy. Patient admits gradually worsening respiratory length cough and productive phlegm for the last week. [facility] Disclaimer: The information contained in this section may have been updated after the patient was seen, as this information can be updated by other users. Medical History (Updated 07/10/23 @ 11:31 by Davin Nayak MD) Carotid bruit present Carotid stenosis COPD (chronic obstructive pulmonary disease) Degenerative joint disease (DJD) of lumbar spine Heart disease Hyperlipidemia due to dietary fat intake Hypertension Migraines Overweight (BMI 25.0-29.9) Pneumonia RLS (restless legs syndrome) Seizures Sleep apnea Surgical History H/O heart artery stent Family History Other Unknown family medical history Social History (Updated 07/09/23 @ 23:17 by Susan Hussein RN) Smoking Status: Current every day smoker tobacco type: cigarettes packs per day: 1 alcohol intake: never substance use type: denies use current occupational status: unemployed Travel in the last 8 weeks: None household members: significant other housing: apartment number of children: 4 Review of Systems Constitutional Constitutional: Reports anorexia, Reports body ache(s) and Reports fatigue Eyes Eyes: Denies eye discharge, Denies dry eyes, Denies irritation and Denies itchy eyes ENT Ears, Nose, Mouth, and Throat: Denies epistaxis, Denies facial pain, Denies lip swelling and Denies throat swelling *Cardiovascular Cardiovascular: Reports dyspnea, Reports dyspnea on exertion, Denies leg edema and Reports orthopnea *Respiratory Respiratory: Reports chest congestion, Reports cough, Reports dyspnea, Reports dyspnea on exertion, Reports excessive phlegm production and Reports wheezing *Gastrointestinal Gastrointestinal: Denies abdominal pain, Denies belching and Denies cramping *Musculoskeletal Musculoskeletal: Reports back pain, Reports myalgias and Reports other (No small joint swelling or Pain) Psychiatric Psychiatric: Denies homicidal ideation and Denies suicidal ideation Endocrine Endocrine: Reports fatigue and Denies heat intolerance Hematologic/Lymphatic Hematologic/Lymphatic: Denies easy bleeding and Denies lymphadenopathy Allergic/Immunologic Allergic/Immunologic: Denies itchy eyes, Denies lip swelling, Denies throat swelling and Reports wheezing Pulmonology Exam Inpatient Vital signs and Labs for Last 24 Hours: Temp Pulse Resp BP Pulse Ox O2 Del Method O2 Flow Rate 98.3 F 92 H 18 117/77 95 Nasal Cannula 3 07/10/23 07:44 07/10/23 09:45 07/10/23 09:45 07/10/23 09:45 07/10/23 09:45 07/10/23 09:45 07/10/23 09:45 FiO2 45 07/10/23 06:20 Laboratory Results - last 24 hr 07/09/23 19:07: WBC 11.8 H, RBC 4.65, Hgb 16.8, Hct 44.5, MCV 95.9 H, MCH 36.2 H , MCHC 37.8 H, RDW 13.9, Plt Count 309, MPV 8.1, Neut % (Auto) 51.3, Lymph % (Auto) 39.2, [place] % (Auto) 5.5, Eos % (Auto) 3.1, Baso % (Auto) 0.9, Neut # (Au to) 6.0, Lymph # (Auto) 4.6 H, [place] # (Auto) 0.7, Eos # (Auto) 0.4, Baso # (A uto) 0.1, Sodium 135 L, Potassium 3.8, Chloride 103, Carbon Dioxide 21 L, Anion Gap 14.8, BUN 11, Creatinine 0.80, Estimated Creat Clear 126, Estimated GFR 99, Est GFR ( Amer) 119, Glucose 250 H, Lactate 3.0 H, Calcium 7.9 L, Total Bilirubin 0.5, AST 49, ALT 36, Alkaline Phosphatase 122, Troponin I < 0.01, NT-Pro-B Natriuret Pep 818 H, Total Protein 7.6, Albumin 4.2, Globulin 3.4 H, Albumin/Globulin Ratio 1.2 07/09/23 19:16: VBG pH 7.18 L, VBG pCO2 48.6, VBG pO2 143.8 H, VBG HCO3 17.8 L, VBG Total CO2 19.3 L, VBG O2 Saturation 98.6 H, VBG Base Excess -10.5 L 07/09/23 21:00: SARS-CoV-2 (PCR) Not detected, Influenza A Untype (PCR) Not detected, Influenza Type B (PCR) Not detected 07/09/23 22:26: Troponin I 0.17 H 07/09/23 23:30: ABG pH 7.40, ABG pCO2 36.6, ABG pO2 79.4 L, ABG HCO3 21.9 L, ABG Total CO2 23.0, ABG O2 Saturation 96, ABG Base Excess -3.0 L 07/09/23 23:48: Lactate 3.1 H 07/10/23 01:35: Lactate 2.6 H, Troponin I 0.21 H 07/10/23 06:37: Specimen Source R radial, O2 % 45, ABG pH 7.42, ABG pCO2 32.9 L, ABG pO2 90.7, ABG HCO3 21.1 L, ABG Total CO2 22.1 L, ABG O2 Saturation 98, ABG Base Excess -3.4 L, [place] Test Acceptable, Tidal Volume 16/8 07/10/23 06:46: WBC 12.2 H, RBC 4.61, Hgb 14.8 D, Hct 43.7, MCV 94.7 H, MCH 32.1 H, MCHC 33.9, RDW 13.9, Plt Count 294, MPV 8.1, Neut % (Auto) 81.5 H, Lymph % (Auto) 12.5, [place] % (Auto) 5.7, Eos % (Auto) 0.0 L, Baso % (Auto) 0.3, Neut # (Auto) 9.9 H, Lymph # (Auto) 1.5, [place] # (Auto) 0.7, Eos # (Auto) 0.0, Baso # (Auto) 0.0, Sodium 134 L, Potassium 4.8 D, Chloride 105, Carbon Dioxide 23, Anion Gap 10.8, BUN 14 D, Creatinine 0.70, Estimated Creat Clear 128, Estimated GFR 115, Est GFR ( Amer) 139, Glucose 139 H D, Calcium 8.4, Magnesium 2.1, Total Bilirubin 0.4, AST 48, ALT 37, Alkaline Phosphatase 102, Total Protein 6.7, Albumin 3.7 D, Globulin 3.0, Albumin/Globulin Ratio 1.2 I & O for Labs for Last 24 Hours: Intake & Output 07/07/23 07/08/23 07/09/23 07/10/23 23:59 23:59 23:59 23:59 Intake Total 16.80 / 16.80 140.2 / 140.2 Output Total 1300 / 1300 Balance 16.80 / -983.20 -1159.8 / -1159.8 Weight 200 lb 178 lb 6.4 oz Constitutional: Present moderate distress Head: Present normocephalic and atraumatic ENT: Present normal exam, normal oropharynx and mucous membranes moist Neck: Present normal inspection and full ROM Respiratory: Present respiratory distress, rhonchi, diminished air movement and able to speak in complete sentences; Absent wheezes Cardiac: Present S1/S2, Tachycardia and radial pulses present GI: Present soft and distention; Absent tenderness or guarding Skin: Present intact; Absent cyanosis or jaundice Neuro: Present alert, awake and oriented x 3 Extremities: Present normal inspection; Absent clubbing or cyanosis Psychiatric: Present normal affect and cooperative Meds Home Medications and Allergies Home Medications Medication Instructions Recorded Confirmed Type albuterol sulfate 90 mcg/actuation 1 puff inhalation Q4-6H #18 grams 09/12/21 07/10/23 Rx aerosol inhaler aspirin 81 mg tablet,delayed 81 mg PO DAILY 30 days #100 tabs 05/20/23 07/10/23 Rx release metoprolol tartrate 100 mg tablet 100 mg PO BID 30 days #60 tabs 06/11/23 07/10/23 Rx amlodipine 10 mg tablet 10 mg PO DAILY 30 days #30 tabs 07/04/23 07/10/23 Rx atorvastatin 80 mg tablet 80 mg PO DAILY 30 days #30 tabs 07/04/23 07/10/23 Rx clopidogrel 75 mg tablet 75 mg PO DAILY 30 days #30 tabs 07/04/23 07/10/23 Rx isosorbide mononitrate 120 mg 120 mg PO DAILY 30 days #30 tabs 07/04/23 07/10/23 Rx tablet,extended release 24 hr lisinopril 5 mg tablet 5 mg PO DAILY 30 days #30 tabs 07/04/23 07/10/23 Rx mirtazapine 15 mg tablet 15 mg PO HS sleep #30 tabs 07/04/23 07/10/23 Rx paroxetine HCl 30 mg tablet (Paxil) 30 mg PO DAILY #30 tabs 07/04/23 07/10/23 Rx phenytoin sodium extended 100 mg 100 mg PO 5XD seizures #150 caps 07/04/23 07/10/23 Rx capsule prazosin 2 mg capsule 2 mg PO DAILY 30 days #30 caps 07/04/23 07/10/23 Rx furosemide 20 mg tablet 20 mg PO DAILYP PRN Edema 07/09/23 07/10/23 History hydroxyzine pamoate 25 mg capsule 25 mg PO TIDP PRN Anxiety 07/09/23 07/10/23 History meclizine 12.5 mg tablet 12.5 mg PO BIDP PRN Dizziness 07/09/23 07/10/23 History nitroglycerin 0.4 mg sublingual 0.4 mg sublingual Q5MINP PRN Chest 07/09/23 07/10/23 History tablet Pain trazodone 50 mg tablet 50 mg PO HS 07/09/23 07/10/23 History gabapentin 800 mg tablet 800 mg PO QID Pain 07/10/23 07/10/23 History New Prescriptions to Start Prescriptions: Allergies Allergy/AdvReac Type Severity Reaction Status Date / Time hydrocodone Allergy shortness Verified 06/11/23 10:21 of breath amitriptyline AdvReac Mild Nausea Verified 06/11/23 10:21 Results Laboratory Findings 07/10/23 06:46 07/10/23 06:46 ABG ABG pH 7.42 mmol/L (7.35-7.45) 07/10/23 06:37 ABG pCO2 32.9 mmhg (35.0-45.0) L 07/10/23 06:37 ABG pO2 90.7 mmhg (80-100) 07/10/23 06:37 ABG O2 Saturation 98 % (90-100) 07/10/23 06:37 Abnormal lab findings: Abnormal Labs 07/09/23 07/09/23 07/09/23 19:07 19:16 22:26 WBC 11.8 H MCV 95.9 H MCH 36.2 H MCHC 37.8 H Neut % (Auto) Eos % (Auto) Neut # (Auto) Lymph # (Auto) 4.6 H ABG pCO2 ABG pO2 ABG HCO3 ABG Total CO2 ABG Base Excess VBG pH 7.18 L VBG pO2 143.8 H VBG HCO3 17.8 L VBG Total CO2 19.3 L VBG O2 Saturation 98.6 H VBG Base Excess -10.5 L Sodium 135 L Carbon Dioxide 21 L Glucose 250 H Lactate 3.0 H Calcium 7.9 L Troponin I 0.17 H NT-Pro-B Natriuret Pep 818 H Globulin 3.4 H 07/09/23 07/09/23 07/10/23 23:30 23:48 01:35 WBC MCV MCH MCHC Neut % (Auto) Eos % (Auto) Neut # (Auto) Lymph # (Auto) ABG pCO2 ABG pO2 79.4 L ABG HCO3 21.9 L ABG Total CO2 ABG Base Excess -3.0 L VBG pH VBG pO2 VBG HCO3 VBG Total CO2 VBG O2 Saturation VBG Base Excess Sodium Carbon Dioxide Glucose Lactate 3.1 H 2.6 H Calcium Troponin I 0.21 H NT-Pro-B Natriuret Pep Globulin 07/10/23 07/10/23 06:37 06:46 WBC 12.2 H MCV 94.7 H MCH 32.1 H MCHC Neut % (Auto) 81.5 H Eos % (Auto) 0.0 L Neut # (Auto) 9.9 H Lymph # (Auto) ABG pCO2 32.9 L ABG pO2 ABG HCO3 21.1 L ABG Total CO2 22.1 L ABG Base Excess -3.4 L VBG pH VBG pO2 VBG HCO3 VBG Total CO2 VBG O2 Saturation VBG Base Excess Sodium 134 L Carbon Dioxide Glucose 139 H D Lactate Calcium Troponin I NT-Pro-B Natriuret Pep Globulin Assessment and Plan *Assessment and plan (1) Acute hypoxic respiratory failure: Status: Acute Category: Medical Code(s): J96.01 - Acute respiratory failure with hypoxia (2) Pneumonia: Status: Acute Category: Medical Code(s): J18.9 - Pneumonia, unspecified organism Plan Mr. Hess is a 66-year-old male greater than [id number] smoking history, not using any oxygen supplementation at home, on Trelegy inhaler along with albuterol on as-needed basis, with reported history of COPD, CHF, hypertension, seizure disorder presented to the ER with worsening respiratory distress and pulmonary was called for further evaluation and management. Patient admission found to be hypoxic and was initiated on BiPAP therapy. Using Advair discus 250 at baseline. Hemodynamically stable. Afebrile. Mild leukocytosis neutrophilic prominent upon admission. Arterial and venous blood gases upon admission did not show any evidence of hypoxic/hypercarbic respiratory failure. Chest x-ray upon admission concerning for right lower lobe airspace disease along with increasing interstitial markings concerning for pulmonary edema. CT chest chest from 2018 multiple pulm nodules along with emphysematous changes though not extensive. PFT from 2018 moderate COPD FEV1 VC ratio 6, V1 at 63% predicted, 2.0 L. Patient upon admission was initiated on doxycycline along with nebulization therapies. Received 1 dose of IV methylprednisolone in the ER. On my initial examination patient appeared to be in moderate respiratory distress with no significant wheezing noted on auscultation. Plan: -Continue oxygen supplementation to maintain O2 saturation goal of 90% and -Change antibiotics to levofloxacin pending sputum culture results -Initiate Trelegy 100 inhaler along with DuoNebs every 6 hours on as-needed basis -Follow with cardiology recommendation # Thank you for involving pulmonary in this patient care. Will continue to follow
--- NOTE | 2023-07-10 10:40 | PC.NURSE ---
Nitroglycerin drip off at this time. bp 119/86
--- NOTE | 2023-07-10 10:53 | CA_ITS ---
APPROVED REPORT EXAM: Comprehensive 2D, Doppler, and color-flow Echocardiogram [employer] Instructor: Deyanira Dowd RT(R) Ht: 5 ft 5 in Wt: 168lbs BSA: 1.84 BP: 116/75 mmHg Indications: COPD, smoker, NSTEMI, HTN, hyperlipidemia, CAD, CHF, MORENA, elevated troponin. The air bag curer advised patient that she needed to use contrast to enhance his echo images, but he declined on multiple occasions despite understanding the benefits and concern for apical LV thrombus. 2D Dimensions Left Atrium 3.62 cm M: 3.0 - 4.0 LA Volume 32.60 mL LVOT 1.93 cm (M/F) 1.5-2.5 LA Volume Index 17.72 mL/m2 (M/F) 16-34 EF AP4 59.60 % GL Strain -14.8 % M-Mode Dimensions RVDd 3.43 cm (0.9-2.6) LVDd 3.65 cm (3.5-5.7) Ao Diam 3.16 cm (2.0-3.7) LVDs 2.75 cm (3.5-5.7) IVSd 0.86 cm (0.6-1.1) PWd 0.72 cm (0.6-1.1) EF (Teich) 49.70% FS 24.70% EDV (Teich) 56.30 mL ESV (Teich) 28.30 mL LV Diastology E Decel Time 150 (160-240 msec) E/A Ratio 0.7 MED E' 5.7 (>= 7 cm/sec) E'/MED E' Ratio 11.91 (<= 14) LAT E' 5.7 (>= 10 cm/sec) E/LAT E' Ratio 11.91 (<= 14) Aortic Valve LVOT Max 166.0 (70-110 cm/s) BAN Index 1.60 cm2/m2 LVOT VTI 28.11 cm AoV Peak Syed. 169.0 (50-130 cm/s) AI PHT 392.00 ms AO Mean GR. 5.60 (<5 mmHg) AO VTI 27.9 (18-25 cm) BAN (VTI) 2.94 (2.5-4.5 cm2) Mitral Valve MV E Max Syed. 68.0 (40-130 cm/s) MV A Velocity 93.0 (40-130 cm/s) E/A Ratio 0.73 MV Decel. Time 150 (160-240 ms) Left Ventricle The left ventricle is normal size. Left ventricular systolic function is borderline. There is increased LV wall thickness. There is severe hypokinesis of the LV apex, cannot exclude LV apical aneurysm.. Grade 1 diastolic dysfunction is present. There is a possible echodensity present in the LV apex of uncertain significance. Ultrasound enhancing agent could not be administered due to patient declining. LVEF is 50%. Right Ventricle The right ventricle is normal size. The right ventricular systolic function is normal. Atria The left atrium size is normal. The right atrium size is normal. There is no Doppler evidence of interatrial shunt. Aortic Valve The aortic valve is mildly thickened. There is no aortic valvular stenosis. Mild to moderate aortic regurgitation. Mitral Valve The mitral valve leaflets are mildly thickened. No evidence of mitral valve stenosis. Mild mitral regurgitation. Tricuspid Valve The tricuspid valve leaflets are thin and pliable. Trace tricuspid regurgitation. There is insufficient TR jet to estimate RVSP. Pulmonic Valve The pulmonary valve is normal in structure. Trace pulmonic regurgitation. Great Vessels The aortic root is normal in size. The ascending aorta is not well-visualized. IVC is normal in size and collapses >50% with inspiration. Pericardium There is no pericardial effusion. Other Information Study Quality: Technically Difficult. Technically limited study due to patient declining full exam. Conclusion Technically difficult study due to poor acoustic windows. Low normal LV systolic function. There is severe hypokinesis of the LV apex, cannot exclude LV apical aneurysm. Possible echodensity present in the LV apex of uncertain significance. Ultrasound enhancing agent could not be administered due to patient declining. Mild to moderate AI. Mild MR. Further evaluation for the presence of an LV apical echodensity is recommended with ultrasound enhancing agent, if the patient is agreeable in the future. Serial TTE assessment to evaluate the AI is also recommended. Electronically signed by : Paula Burt MD 07/11/2023 11:15:05
[2023-07-10] MEDS: FUROSEMIDE 40MG/4ML VIAL 40 MG IV (11:04)
--- NOTE | 2023-07-10 11:25 | PC.NURSE ---
Deyanira, echo at bedside.
--- NOTE | 2023-07-10 11:56 | PC.NURSE ---
upon entering pt's room to given Levofloxacin antibiotic pt states he wants to go home. pt states I am feeling better and just want to go home. pt explained the risk of leaving AMA. pt asked if he would stay until this afternoon to receive antibiotics and results of other test prior to leaving, pt denied. Charge nurse, Samara notified. Petey Lockett called and stated he would come speak with patient. Dr. Tijerina called regarding pt wanting to leave AMMD Jones verbalized understanding.
--- NOTE | 2023-07-10 12:22 | PC.NURSE ---
went into patients room and asked if we could go ahead and start Levofloxacin while patient waits to talk to doctor. pt states I would rather not and just hold off. pt informed that his oxygen level is 90-93% on 2LNC and pt does not wear home oxygen so patient informed taht by not having oxygen and leaving AMA his oxygen level could drop low. pt states that a chance I will just have to take.
[2023-07-10] MEDS: METOPROLOL TARTRATE 50MG TABLET 50 MG PO (12:40)
--- NOTE | 2023-07-10 12:47 | PC.NURSE ---
PATRICIO Lockett and Dr. Burt went in and speak with patient regarding the risk of leaving AMA. Matilde Quintanilla, Charge and myself present in room while MD spoke with patient. MD stated that pt could deteriorate and even . pt still adamant that he wanted to leave. MD had pt get up and walk around the room on room air, sats dropped to 89%, pt informed of oxygen level. MD stated to give pt Metoprolol 50 mg at this time. pt instructed per MD and staff to return to the hospital at any time. pt states he wants to go home and call his son, this nurse offered to attempt to reach pt's son, pt denied.
--- NOTE | 2023-07-10 13:23 | PC.NURSE ---
pt spoke with his sister regarding a ride home.
--- NOTE | 2023-07-10 13:32 | PC.NURSE ---
pt states his ride is here, pt states he already has all of his medications at home that cardiology wants him to take d/t Dr. Garcia calling them in for him yesterday. pt ambualted off the floor at this time.
--- NOTE | 2023-07-15 18:44 | EXP.DC.SUM ---
General Admission date:: 07/09/23 Discharge date: 07/10/23 HPI HPI HPI: This is a 58-year-old male with PMHx of COPD, CHF, HTN, Seizure, smoker brought in by EMS today with respiratory distress. History is limited secondary to his clinical state. Data obtained form ER documentation and EMS report. At the time of this interview patient seen more alert and cooperative, he states has been short of breath over the last few days. Denies any fevers or chills. Patient was placed on nonrebreather with oxygen saturations initially in the mid 70s per EMS, upgraded to continuos BIPAP. admitted for further treatment and management. Hospital Course Hospital Course Hospital Course: Patient left AMA Exam Data for Last 24 hours Vital signs and Labs for Last 24 Hours: Temp Pulse Resp BP Pulse Ox O2 Del Method O2 Flow Rate 98.0 F 90 18 139/77 90 L Room Air 2 07/10/23 11:06 07/10/23 12:00 07/10/23 12:00 07/10/23 12:00 07/10/23 12:00 07/10/23 12:55 07/10/23 12:00 FiO2 45 07/10/23 06:20 Microbiology Reports for the Last 24 Hours: Microbiology 07/09/23 19:07 Blood Blood Culture - Preliminary 07/09/23 19:10 Blood Blood Culture - Preliminary Results Data Completed and Pending Labs on day of discharge: Preliminary micro results at discharge 07/09/23 19:07 Blood Culture - Preliminary Blood 07/09/23 19:10 Blood Culture - Preliminary Blood DS: Diagnosis Discharge Diagnosis (1) Pulmonary edema with congestive heart failure: Status: Acute Code(s): I50.1 - Left ventricular failure, unspecified (2) Elevated troponin: Status: Acute Code(s): R79.89 - Other specified abnormal findings of blood chemistry (3) Acute hypoxic respiratory failure: Status: Acute Code(s): J96.01 - Acute respiratory failure with hypoxia (4) COPD (chronic obstructive pulmonary disease): Status: Acute Code(s): J44.9 - Chronic obstructive pulmonary disease, unspecified Qualifiers: COPD type: unspecified COPD Qualified Code(s): J44.9 - Chronic obstructive pulmonary disease, unspecified (5) Hyperlipidemia: Status: Acute Code(s): E78.5 - Hyperlipidemia, unspecified Qualifiers: Hyperlipidemia type: unspecified Qualified Code(s): E78.5 - Hyperlipidemia, unspecified (6) Claudication of both lower extremities: Status: Acute Code(s): I73.9 - Peripheral vascular disease, unspecified (7) Hypertension: Status: Acute Code(s): I10 - Essential (primary) hypertension Qualifiers: Hypertension type: essential hypertension Qualified Code(s): I10 - Essential (primary) hypertension (8) Seizures: Status: Acute Code(s): R56.9 - Unspecified convulsions (9) Carotid stenosis: Status: Acute Code(s): I65.29 - Occlusion and stenosis of unspecified carotid artery Qualifiers: Laterality: bilateral Qualified Code(s): I65.23 - Occlusion and stenosis of bilateral carotid arteries (10) Tobacco use: Status: Acute Code(s): Z72.0 - Tobacco use Meds Home Medications and Allergies Home Medications Medication Instructions Recorded Confirmed Type albuterol sulfate 90 mcg/actuation 1 puff inhalation Q4-6H #18 grams 09/12/21 07/10/23 Rx aerosol inhaler aspirin 81 mg tablet,delayed 81 mg PO DAILY 30 days #100 tabs 05/20/23 07/10/23 Rx release metoprolol tartrate 100 mg tablet 100 mg PO BID 30 days #60 tabs 06/11/23 07/10/23 Rx amlodipine 10 mg tablet 10 mg PO DAILY 30 days #30 tabs 07/04/23 07/10/23 Rx atorvastatin 80 mg tablet 80 mg PO DAILY 30 days #30 tabs 07/04/23 07/10/23 Rx clopidogrel 75 mg tablet 75 mg PO DAILY 30 days #30 tabs 07/04/23 07/10/23 Rx isosorbide mononitrate 120 mg 120 mg PO DAILY 30 days #30 tabs 07/04/23 07/10/23 Rx tablet,extended release 24 hr lisinopril 5 mg tablet 5 mg PO DAILY 30 days #30 tabs 07/04/23 07/10/23 Rx mirtazapine 15 mg tablet 15 mg PO HS sleep #30 tabs 07/04/23 07/10/23 Rx paroxetine HCl 30 mg tablet (Paxil) 30 mg PO DAILY #30 tabs 07/04/23 07/10/23 Rx phenytoin sodium extended 100 mg 100 mg PO 5XD seizures #150 caps 07/04/23 07/10/23 Rx capsule prazosin 2 mg capsule 2 mg PO DAILY 30 days #30 caps 07/04/23 07/10/23 Rx hydroxyzine pamoate 25 mg capsule 25 mg PO TIDP PRN Anxiety 07/09/23 07/10/23 History meclizine 12.5 mg tablet 12.5 mg PO BIDP PRN Dizziness 07/09/23 07/10/23 History trazodone 50 mg tablet 50 mg PO HS 07/09/23 07/10/23 History gabapentin 800 mg tablet 800 mg PO QID Pain 07/10/23 07/10/23 History furosemide 20 mg tablet 20 mg PO DAILYP PRN Edema #30 tabs 07/11/23 07/11/23 Rx nitroglycerin 0.4 mg sublingual 0.4 mg sublingual Q5MINP PRN Chest 07/11/23 07/11/23 Rx tablet Pain #100 tabs New Prescriptions to Start Prescriptions: Allergies Allergy/AdvReac Type Severity Reaction Status Date / Time hydrocodone Allergy shortness Verified 06/11/23 10:21 of breath amitriptyline AdvReac Mild Nausea Verified 06/11/23 10:21 Discharge Plan Disposition Patient Disposition: Left Against Medical Advice Providers Admit Provider: Hanna Tijerina Attending Provider: Hanna Tijerina
== END 2023-07-10 13:40 | disposition home or self-care (01) | DRG 291 ==
LOC: ER 19:41 → 2ND 07-10 00:45
PROVIDERS: Nurse Practitioner Family; Admitting Provider Internal Medicine; Emergency Provider Student in an Organized Health Care Education/Training Program; Visit Provider Internal Medicine
DX: I11.0 Hypertensive heart disease with heart failure (principal); I50.43 Acute on chronic combined systolic (congestive) and diastolic (congestive) heart failure; J18.9 Pneumonia, unspecified organism; J96.00 Acute respiratory failure, unspecified whether with hypoxia or hypercapnia; J96.01 Acute respiratory failure with hypoxia; E78.5 Hyperlipidemia, unspecified; I65.23 Occlusion and stenosis of bilateral carotid arteries; G25.81 Restless legs syndrome; Z95.5 Presence of coronary angioplasty implant and graft; I65.29 Occlusion and stenosis of unspecified carotid artery; F17.210 Nicotine dependence, cigarettes, uncomplicated; G40.909 Epilepsy, unspecified, not intractable, without status epilepticus; J43.9 Emphysema, unspecified
CPT/HCPCS: 36415; 71045; 80053; 82803; 83605; 83735; 83880; 84484; 85025; 87040; 87636; 93005; 93306; 94640; 94660; 99291; J3475

== ENCOUNTER 2023-07-18 17:59 | Outpatient (CLI) | payer MEDICARE, OTHER, SELFPAY ==
[2023-07-18 17:21] LABS: Alanine Aminotransferase 21 U/L (12-78); Albumin Level 3.6 g/dl (3.5-5.0); Albumin/Globulin Ratio 1.5 (1.1-1.8); Alkaline Phosphatase 95 U/L (38-126); Anion Gap 7.3 mEq/L (5-15); Aspartate Amino Transferase 27 U/L (17-59); Bilirubin,Total 0.3 mg/dl (0.2-1.3); Blood Urea Nitrogen 8 mg/dl (9-20); Calcium 8.9 mg/dl (8.4-10.2); Carbon Dioxide 29 mmol/L (22.0-30.0); Chloride 106 mmol/L (98-107); Estimated Glomerular Filt Rate 115 ml/min (>60); GFR (African American) 139 ML/MIN (>60); Globulin 2.4 g/dL (1.3-3.2); Glucose 81 mg/dl (74-100); Potassium 4.3 mmoL/L (3.5-5.1); Sodium 138 mmol/L (136-145)
[2023-07-18 17:45] LABS: Basophils % 0.2 % (0.1-2.0); Eosinophils # 0.3 K/mm3 (0.0-0.4); Eosinophils % 4.1 % (0.1-12.0); Hematocrit 36.1 % (42.0-52.0); Hemoglobin 12.3 g/dL (14.1-18.0); Lymphocytes # 2.7 K/mm3 (0.7-4.5); Lymphocytes % 34.3 % (10-50); Mean Corpuscular HGB Conc 34.1 g/dL (31.8-35.4); Mean Corpuscular Hemoglobin 32.2 pg (27.0-31.2); Mean Corpuscular Volume 94.7 fl (80-94); Mean Platelet Volume 8.9 fl (7.4-10.4); Monocytes # 0.6 K/mm3 (0.1-1.0); Monocytes % 7.3 % (1.7-9.3); Neutrophils # 4.2 K/mm3 (1.8-7.8); Neutrophils % 54.1 % (37.0-80.0); Platelet Count 314 K/mm3 (142-424); Red Blood Count 3.81 M/mm3 (4.60-6.20); White Blood Count 7.7 K/mm3 (4.8-10.8)
== END 2023-07-18 23:59 ==
LOC: LAB.DROPOF 18:00
PROVIDERS: PCP Family Medicine; Visit Provider Family Medicine
DX: I10 Essential (primary) hypertension (principal); F17.210 Nicotine dependence, cigarettes, uncomplicated
CPT/HCPCS: 80053; 85025

== ENCOUNTER 2023-08-15 22:01 | Outpatient (CLI) | payer MEDICARE, OTHER, SELFPAY ==
[2023-08-15 16:35] LABS: Basophils % 0.5 % (0.1-2.0); Eosinophils # 0.3 K/mm3 (0.0-0.4); Eosinophils % 3.2 % (0.1-12.0); Hematocrit 39.3 % (42.0-52.0); Hemoglobin 12.8 g/dL (14.1-18.0); Lymphocytes # 2.7 K/mm3 (0.7-4.5); Lymphocytes % 34.2 % (10-50); Mean Corpuscular HGB Conc 32.5 g/dL (31.8-35.4); Mean Corpuscular Hemoglobin 32.2 pg (27.0-31.2); Mean Platelet Volume 8.4 fl (7.4-10.4); Monocytes # 0.7 K/mm3 (0.1-1.0); Monocytes % 8.7 % (1.7-9.3); Neutrophils # 4.3 K/mm3 (1.8-7.8); Neutrophils % 53.3 % (37.0-80.0); Platelet Count 294 K/mm3 (142-424); Red Blood Count 3.97 M/mm3 (4.60-6.20); Red Cell Distribution Width 14.8 % (11.5-17.5)
== END 2023-08-15 23:59 ==
LOC: LAB.DROPOF 22:01
PROVIDERS: PCP Family Medicine; Visit Provider Family Medicine
DX: D64.9 Anemia, unspecified (principal)
CPT/HCPCS: 85025

== ENCOUNTER 2023-12-13 03:02 | Inpatient (IN) | payer MEDICARE, OTHER, SELFPAY ==
[2023-12-13] VITALS (43 sets, daily range): BP systolic 73–157; BP diastolic 40–84; PULSE 46–75; RESP 14–22; TEMP 35.2–37.4; O2SAT 94–100; BMI 29.0
[2023-12-13] MEDS: SUCCINYLCHOLINE 20MG/ML 10 ML MDV 120 MG IV (03:14)
[2023-12-13] MEDS: ETOMIDATE 40MG/20ML VIAL 20 MG IV (03:14)
--- NOTE | 2023-12-13 03:16 | XR_ITS ---
PROCEDURE INFORMATION: Exam: XR Chest Exam date and time: 12/13/2023 3:17 AM Age: 58 years old Clinical indication: Device placement; Ett placement (vent status); Additional info: Ett and og placement, fall TECHNIQUE: Imaging protocol: Radiologic exam of the chest. Views: 1 view. COMPARISON: CR XR CHEST PORTABLE 07/09/2023 7:20 PM FINDINGS: Tubes, catheters and devices: The ET tube and nasogastric tube are in good position. Lungs: Unremarkable. No consolidation. Pleural spaces: Unremarkable. No pleural effusion. No pneumothorax. Heart/Mediastinum: Unremarkable. No cardiomegaly. Bones/joints: Unremarkable. IMPRESSION: No acute process
[2023-12-13] MEDS: LACTATED RINGERS 1000ML 1,000 ML 999 ML IV ×2 (03:19→05:07)
--- NOTE | 2023-12-13 03:21 | CT_ITS ---
PROCEDURE INFORMATION: Exam: CTA Chest With Contrast Exam date and time: 12/13/2023 4:15 AM Age: 58 years old Clinical indication: Injury or trauma; Additional info: Trauma, critical injury suspected TECHNIQUE: Imaging protocol: Computed tomographic angiography of the chest with contrast. Exam focused on the arteries. 3D rendering (Not supervised by radiologist): MIP and/or 3D reconstructed images were created by the technologist. Radiation optimization: All CT scans at this facility use at least one of these dose optimization techniques: automated exposure control; mA and/or kV adjustment per patient size (includes targeted exams where dose is matched to clinical indication); or iterative reconstruction. Contrast material: ISOVUE 370; Contrast volume: 100 ml; Contrast route: INTRAVENOUS (IV); COMPARISON: CT CHEST WO CON 02/25/2021 11:21 PM FINDINGS: Tubes, catheters and devices: ET tube is present in good position. Nasogastric tube is seen in good position. Pulmonary arteries: Normal. No pulmonary emboli. Aorta: Unremarkable. No aortic aneurysm. No aortic dissection. Lungs: There is dependent atelectasis present bilaterally. Pleural spaces: Unremarkable. No pneumothorax. No pleural effusion. Heart: Unremarkable. No cardiomegaly. No pericardial effusion. Coronary arteries: Coronary atherosclerosis. Lymph nodes: Unremarkable. No enlarged lymph nodes. Bones/joints: Unremarkable. No acute fracture. Soft tissues: Unremarkable. IMPRESSION: 1. No acute traumatic injury identified. 2. Coronary atherosclerosis. 3. ET tube and NG tube are in good position.
--- NOTE | 2023-12-13 03:21 | CT_ITS ---
PROCEDURE INFORMATION: Exam: CT Thoracic Spine Without Contrast Exam date and time: 12/13/2023 4:07 AM Age: 58 years old Clinical indication: Injury or trauma; Additional info: Trauma, critical injury suspected TECHNIQUE: Imaging protocol: Computed tomography of the thoracic spine without contrast. Radiation optimization: All CT scans at this facility use at least one of these dose optimization techniques: automated exposure control; mA and/or kV adjustment per patient size (includes targeted exams where dose is matched to clinical indication); or iterative reconstruction. COMPARISON: CT CERVICAL SPINE WO CON 12/13/2023 4:05 AM FINDINGS: Tubes, catheters and devices: Endotracheal tube and enteral tube are in satisfactory positions. Bones/joints: No evidence of acute thoracic spine fracture or malalignment. Visualized posterior ribs are intact. Soft tissues: Unremarkable. Lungs: There is dependent change in the visualized portions of each lung. Emphysema and interlobular septal thickening are noted in each lung along with diffuse bronchial wall thickening. There is dependent change bilaterally. IMPRESSION: 1. No evidence of acute thoracic spine fracture or malalignment. No visible posterior rib fracture. 2. Support devices are in satisfactory positions. 3. Lungs are notable for emphysema, bronchial wall thickening, and interlobular septal thickening which could represent superimposed edema. Dependent atelectasis noted in each lung.
--- NOTE | 2023-12-13 03:21 | CT_ITS ---
PROCEDURE INFORMATION: Exam: CT Cervical Spine Without Contrast Exam date and time: 12/13/2023 4:05 AM Age: 58 years old Clinical indication: Injury or trauma; Additional info: Trauma, critical injury suspected TECHNIQUE: Imaging protocol: Computed tomography of the cervical spine without contrast. Radiation optimization: All CT scans at this facility use at least one of these dose optimization techniques: automated exposure control; mA and/or kV adjustment per patient size (includes targeted exams where dose is matched to clinical indication); or iterative reconstruction. COMPARISON: CT ANGIO NECK 10/11/2021 1:22 PM FINDINGS: Bones/joints: Unremarkable Discs/Spinal canal/Neural foramina: Unremarkable Lungs: Lung apices are normal. Vasculature: No obvious traumatic injury is seen. Carotid atherosclerosis is present. Soft tissues: Unremarkable. IMPRESSION: 1. No evidence of acute traumatic injury. 2. Carotid atherosclerosis is present.
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
--- NOTE | 2023-12-13 03:21 | CT_ITS ---
PROCEDURE INFORMATION: Exam: CT Head Without Contrast Exam date and time: 12/13/2023 4:03 AM Age: 58 years old Clinical indication: Injury or trauma; Additional info: Trauma, critical injury suspected TECHNIQUE: Imaging protocol: Computed tomography of the head without contrast. Radiation optimization: All CT scans at this facility use at least one of these dose optimization techniques: automated exposure control; mA and/or kV adjustment per patient size (includes targeted exams where dose is matched to clinical indication); or iterative reconstruction. COMPARISON: CT ANGIO NECK 10/11/2021 1:22 PM FINDINGS: Brain: Normal. No hemorrhage. Unremarkable white matter. No mass effect. Cerebral ventricles: No ventriculomegaly. Paranasal sinuses: Visualized sinuses are unremarkable. No fluid levels. Mastoid air cells: Visualized mastoid air cells are well aerated. Bones: Unremarkable. No acute fracture. Soft tissues: Unremarkable. IMPRESSION: ET tube and nasogastric tube are present. No acute intracranial abnormality noted.
--- NOTE | 2023-12-13 03:21 | CT_ITS ---
PROCEDURE INFORMATION: Exam: CTA Neck With Contrast Exam date and time: 12/13/2023 4:11 AM Age: 58 years old Clinical indication: Injury or trauma; Additional info: Trauma, critical injury suspected TECHNIQUE: Imaging protocol: Computed tomographic angiography of the neck with contrast. Exam focused on the cervical segments of the vasculature. 3D rendering (Not supervised by radiologist): MIP and/or 3D reconstructed images were created by the technologist. Radiation optimization: All CT scans at this facility use at least one of these dose optimization techniques: automated exposure control; mA and/or kV adjustment per patient size (includes targeted exams where dose is matched to clinical indication); or iterative reconstruction. Contrast material: ISOVUE 370; Contrast volume: 100 ml; Contrast route: INTRAVENOUS (IV); COMPARISON: CT ANGIO NECK 10/11/2021 1:22 PM FINDINGS: Right common carotid artery: No stenosis. No dissection or occlusion. Right internal carotid artery: No significant stenosis. No dissection or occlusion. Right external carotid artery: No occlusion or stenosis of the origin. Left common carotid artery: Atherosclerotic disease of the left common carotid artery the results in stenosis measuring 50%. There is good distal flow. Left internal carotid artery: Irregular atherosclerotic disease of the left carotid internal carotid artery. This results in stenosis measuring 80%. Left external carotid artery: No occlusion or stenosis of the origin. Right vertebral artery: Severe atherosclerotic disease of the origin of the right-sided vertebral artery that results in near occlusion. There is good distal flow. Left vertebral artery: No stenosis. No dissection or occlusion. Soft tissues: Normal. No significant soft tissue swelling. Bones/joints: No acute fracture. IMPRESSION: 1. Irregular atherosclerotic disease of the left carotid internal carotid artery. This results in stenosis measuring 80%. This may be a source of distal emboli. 2. Atherosclerotic disease of the left common carotid artery the results in stenosis measuring 50%. There is good distal flow. 3. Severe atherosclerotic disease of the origin of the right-sided vertebral artery that results in near occlusion. There is good distal flow. 4. The remainder of the vascular structures are unremarkable. There is no acute traumatic injury. There is no other stenosis. REFERENCES: NASCET CRITERIA. The degree of stenosis in the cervical segment of the internal carotid artery is based on NASCET criteria. Normal is no stenosis. Mild is less than 50% stenosis. Moderate is 50-69% stenosis. Severe is 70% to 99% stenosis. Total occlusion is no detectable patent lumen.
--- NOTE | 2023-12-13 03:21 | CT_ITS ---
PROCEDURE INFORMATION: Exam: CT Lumbar Spine Without Contrast Exam date and time: 12/13/2023 4:09 AM Age: 58 years old Clinical indication: Injury or trauma; Additional info: Trauma, critical injury suspected TECHNIQUE: Imaging protocol: Computed tomography of the lumbar spine without contrast. Radiation optimization: All CT scans at this facility use at least one of these dose optimization techniques: automated exposure control; mA and/or kV adjustment per patient size (includes targeted exams where dose is matched to clinical indication); or iterative reconstruction. COMPARISON: CT THORACIC SPINE WO CON 12/13/2023 4:07 AM FINDINGS: Bones/joints: No evidence of acute lumbar spine fracture or malalignment. No significant degenerative change. Vasculature: Moderate aortic calcific atherosclerosis without aneurysm. Soft tissues: Paraspinous soft tissues appear normal. IMPRESSION: No evidence of acute lumbar spine fracture or malalignment.
--- NOTE | 2023-12-13 03:21 | CT_ITS ---
PROCEDURE INFORMATION: Exam: CTA Head With Contrast, Arteriography Exam date and time: 12/13/2023 4:11 AM Age: 58 years old Clinical indication: Injury or trauma; Additional info: Trauma, critical injury suspected TECHNIQUE: Imaging protocol: Computed tomographic angiography of the head with contrast. Exam focused on the arteries. 3D rendering (Not supervised by radiologist): MIP and/or 3D reconstructed images were created by the technologist. Radiation optimization: All CT scans at this facility use at least one of these dose optimization techniques: automated exposure control; mA and/or kV adjustment per patient size (includes targeted exams where dose is matched to clinical indication); or iterative reconstruction. Contrast material: ISOVUE 370; Contrast volume: 100 ml; Contrast route: INTRAVENOUS (IV); COMPARISON: CT HEAD/BRAIN WO CON 12/13/2023 4:03 AM FINDINGS: ANTERIOR CIRCULATION: Right internal carotid artery: Intracranial segment is patent with no significant stenosis. No aneurysm. Right middle cerebral artery: No occlusion or significant stenosis. No aneurysm. Right anterior cerebral artery: No occlusion or significant stenosis. No aneurysm. Left internal carotid artery: Irregular atherosclerotic disease of the left carotid internal carotid artery. This results in stenosis measuring 80%. Left middle cerebral artery: No occlusion or significant stenosis. No aneurysm. Left anterior cerebral artery: No occlusion or significant stenosis. No aneurysm. POSTERIOR CIRCULATION: Right vertebral artery: Severe atherosclerotic disease of the origin right-sided vertebral artery that results in near occlusion. There is good distal flow. Left vertebral artery: No occlusion or significant stenosis. No aneurysm. Basilar artery: No occlusion or significant stenosis. No aneurysm. Right posterior cerebral artery: No occlusion or significant stenosis. No aneurysm. Left posterior cerebral artery: No occlusion or significant stenosis. No aneurysm. Left common carotid artery: Atherosclerotic disease of the left common carotid artery the results in stenosis measuring 50%. There is good distal flow. Brain: No definite mass, mass effect, or midline shift. Cerebral ventricles: No ventriculomegaly. Bones/joints: Unremarkable. No acute fracture. Soft tissues: Unremarkable. IMPRESSION: 1. Irregular atherosclerotic disease of the left carotid internal carotid artery. This results in stenosis measuring 80%. This may be a source of distal emboli. 2. Atherosclerotic disease of the left common carotid artery the results in stenosis measuring 50%. There is good distal flow. 3. Severe atherosclerotic disease of the origin of the right-sided vertebral artery that results in near occlusion. There is good distal flow. 4. The remainder of the vascular structures are unremarkable. There is no acute traumatic injury. There is no other stenosis.
--- NOTE | 2023-12-13 03:21 | CT_ITS ---
PROCEDURE INFORMATION: Exam: CT Abdomen And Pelvis With Contrast Exam date and time: 12/13/2023 4:15 AM Age: 58 years old Clinical indication: Injury or trauma; Additional info: Trauma, critical injury suspected TECHNIQUE: Imaging protocol: Computed tomography of the abdomen and pelvis with contrast. 3D rendering (Not supervised by radiologist): MIP and/or 3D reconstructed images were created by the technologist. Radiation optimization: All CT scans at this facility use at least one of these dose optimization techniques: automated exposure control; mA and/or kV adjustment per patient size (includes targeted exams where dose is matched to clinical indication); or iterative reconstruction. Contrast material: IOSVUE 370; Contrast volume: 100 ml; Contrast route: INTRAVENOUS (IV); COMPARISON: CR XR HIP LT 2-3V W/PELVIS 03/09/2020 1:52 PM FINDINGS: Tubes, catheters and devices: Siddiqi catheter in the urinary bladder. Catheterized bladder contains gas and contrast. Liver: Normal configuration. Homogeneous parenchyma. Gallbladder and biliary ducts: No regional inflammation. No calcified stones. No ductal dilation. Pancreas: Normal. No ductal dilation. Spleen: Normal. No splenomegaly. Adrenal glands: Normal configuration. Kidneys and ureters: Kidneys enhance symmetrically and demonstrate no evidence of mass, calculus, obstruction, or inflammation. Stomach and bowel: Postprandial stomach. Enteral tube is in satisfactory position. Normal caliber small bowel. Distal colonic diverticulosis without evidence of acute diverticulitis. Appendix: Normal appendix is confirmed. Intraperitoneal space: No free air. No significant fluid collection. Vasculature: Moderate aortoiliac calcific atherosclerosis without aneurysm. Lymph nodes: No enlarged lymph nodes. Urinary bladder: Catheterized bladder contains gas and contrast. Reproductive: Physiologic appearance for age. Bones/joints: No acute fracture in the scan range. Mild lower lumbar facet arthropathy. Patent spinal canal and neural foramina. Soft tissues: Unremarkable. IMPRESSION: No acute abnormality in the abdomen or pelvis. Angiographic technique was interrupted by technical factors. No findings to suggest acute arterial injury.
[2023-12-13 03:22] LABS: Appearance,Urine CLEAR (Clear); Bilirubin,Urine Negative (Negative); Blood, Urine Negative (Negative); Color,Urine YELLOW (Yellow); Glucose,Urine (UA) Negative (Negative); Ketones,Urine Negative (Negative); Leukocyte Esterase,Urine Negative (Negative); Microscopic, Urine URINE MICROSCOPIC (MICROSCOPIC); Nitrate,Urine Negative (Negative); Protein,Urine Negative (Negative); Urobilinogen,Urine 0.2 EU/dl (0.2)
[2023-12-13 03:23] LABS: Basophils % 0.4 % (0.1-2.0); Eosinophils # 0.3 K/mm3 (0.0-0.4); Eosinophils % 3.2 % (0.1-12.0); Hematocrit 34.2 % (42.0-52.0); Hemoglobin 11.5 g/dL (14.1-18.0); Lymphocytes # 2.5 K/mm3 (0.7-4.5); Lymphocytes % 31.6 % (10-50); Mean Corpuscular HGB Conc 33.6 g/dL (31.8-35.4); Mean Corpuscular Hemoglobin 32.4 pg (27.0-31.2); Mean Corpuscular Volume 96.2 fl (80-94); Mean Platelet Volume 7.5 fl (7.4-10.4); Monocytes # 0.5 K/mm3 (0.1-1.0); Neutrophils # 4.5 K/mm3 (1.8-7.8); Neutrophils % 57.8 % (37.0-80.0); Platelet Count 281 K/mm3 (142-424); Red Blood Count 3.56 M/mm3 (4.60-6.20); Red Cell Distribution Width 14.3 % (11.5-17.5); White Blood Count 7.8 K/mm3 (4.8-10.8)
[2023-12-13] MEDS: propofoL 100 ML 2.6 MG IV (03:24)
--- NOTE | 2023-12-13 03:26 | PC.NURSE ---
0314: Time out for controlled intubation with Attending and GROUP HOME MANAGER Jodi at bedside with ER team. 0315: 7.5 ett placed 22cm at the lip per Attending. Verified with color change and bilateral, equal breath sounds/rise and fall
[2023-12-13 03:29] LABS: Chloride 106 mmol/L (98-107); Potassium 3.9 mmoL/L (3.5-5.1); Sodium 133 mmol/L (136-145)
[2023-12-13 03:31] LABS: Alanine Aminotransferase 21 U/L (12-78); Aspartate Amino Transferase 36 U/L (17-59); Blood Urea Nitrogen 9 mg/dl (9-20); Creatinine Clearance Estimated 137 mL/min (50-200); Estimated Glomerular Filt Rate 115 ml/min (>60); Ethyl Alcohol 86 mg/dl (0-10); GFR (African American) 139 ML/MIN (>60)
[2023-12-13 03:32] LABS: Albumin Level 3.6 g/dl (3.5-5.0); Albumin/Globulin Ratio 1.4 (1.1-1.8); Alkaline Phosphatase 71 U/L (38-126); Anion Gap 10.9 mEq/L (5-15); Bilirubin,Total 0.3 mg/dl (0.2-1.3); Carbon Dioxide 20 mmol/L (22.0-30.0); Globulin 2.5 g/dL (1.3-3.2); Glucose 133 mg/dl (74-100); Total Protein,Serum 6.1 g/dl (6.3-8.2)
[2023-12-13 03:33] LABS: Acetaminophen < 10 ug/ml (10-30); Salicylate < 1.0 mg/dL (2.0-20.0)
[2023-12-13 03:35] LABS: Barbiturates Screen,Urine Negative ng/ml (<200); Benzodiazepines Screen,Urine Negative ng/ml (<200)
[2023-12-13 03:36] LABS: Amphetamine/Metha Screen,Urine Negative ng/ml (<1000)
[2023-12-13 03:37] LABS: Cannabinoid Screen,Urine Negative ng/ml (<50); Cocaine Screen,Urine Negative ng/ml (<300)
[2023-12-13 03:38] LABS: Methadone Screen,Urine Negative ng/ml (<300)
[2023-12-13 03:39] LABS: Opiate Screen,Urine Negative ng/ml (<300); Phencyclidine Screen,Urine Negative ng/ml (<25)
[2023-12-13] MEDS: FENTANYL CITRATE/PF 1,000 MCG in 0.9 % SODIUM CHLORIDE 80 ML 1 MCG IV (03:42)
[2023-12-13 03:47] LABS: Troponin I < 0.01 ng/ml (0.00-0.034)
--- NOTE | 2023-12-13 03:55 | PC.NURSE ---
Patient transported to CT
--- NOTE | 2023-12-13 04:30 | PC.NURSE ---
Patient transported back from CT
[2023-12-13] MEDS: IOPAMIDOL-370 (76%);100ML BOTTLE 200 ML IV (04:31)
[2023-12-13] MEDS: SODIUM CHLORIDE 0.9% 10ML SYR (RAD ONLY) 10 ML IV (04:31)
[2023-12-13] MEDS: 0.9 % SODIUM CHLORIDE 50 ML VIAL 100 ML IV (04:31)
--- NOTE | 2023-12-13 04:31 | ECG_ITS ---
APPROVED REPORT Exam: Resting ECG HR:53 bpm ECG Measurements Heart Rate 53 AXES AR 196 P 56 QRSd 112 QRS 66 QT 517 T 109 QTc 501 Conclusion SINUS BRADYCARDIA ANTERIOR MYOCARDIAL INFARCTION , PROBABLY OLD [40+ ms Q WAVE AND/OR ST/T ABNORMALITY IN V3/V4] ABNORMAL ECG UNCONFIRMED REPORT Electronically signed by : GABRIELA ROMERO, 12/14/2023 01:19:19
[2023-12-13 04:34] LABS: ABG Base Excess -5.4 mmol/L (-2.4-2.3); ABG HCO3 20.3 mmhg (22.0-26.0); ABG Oxygen Saturation 98 % (90-100); ABG PH 7.35 mmol/L (7.35-7.45); ABG PO2 132.9 mmhg (80-100); ABG TCO2 21.4 mmhg (23-27)
[2023-12-13 04:38] LABS: Allen's Test Patient Unable; Oxygen 50% %; PEEP 5; Source Right Radial; Tidal Volume 420; Vent Rate 18
--- NOTE | 2023-12-13 04:45 | PC.NURSE ---
Ett changed to 24cm at the lip per GRACIE Zapata and Attending
--- NOTE | 2023-12-13 04:48 | PC.NURSE ---
Attending notified of core temp 95.7 and hypotension. Patient placed on bear hugger
--- NOTE | 2023-12-13 05:17 | P.HP_ITS ---
History of Present Illness *Admission Date: 12/13/23 *Reason for visit:: unresponsive *History of present illness: This is a 58-year-old male with PMHx of COPD, HTN, HLD, CHF, tobacco and alcohol user presented to the ER unresponsive. History taken form chart review, police report and ED documentation. the above per ED physician: Per police and EMS, patient was found wandering around downtown, smells of alcohol, reported drinking. He had fallen multiple times. EMS attempted to arrest him and he fell backwards striking the back of his head. He did not lose consciousness at that time. He was then arrested and taken somewhere else in police custody where he was noted to slump over and become unresponsive. EMS reports that he has had normal vital signs and has been maintaining his airway, but he has been unresponsive to verbal or painful stimuli. EMS gave IV Narcan with no change Intubated on arrival to protect airway. admitted for further management. [facility] Disclaimer: The information contained in this section may have been updated after the patient was seen, as this information can be updated by other users. Medical History Anemia Pneumonia Carotid stenosis Carotid bruit present Degenerative joint disease (DJD) of lumbar spine Overweight (BMI 25.0-29.9) Migraines Sleep apnea RLS (restless legs syndrome) Seizures Hyperlipidemia due to dietary fat intake Heart disease Hypertension COPD (chronic obstructive pulmonary disease) Surgical History H/O heart artery stent Family History Other Unknown family medical history Social History (Updated 12/13/23 @ 05:47 by Yemi Maher RN) Smoking Status: Current every day smoker tobacco type: cigarettes packs per day: 1 alcohol intake: current substance use type: denies use current occupational status: unemployed Travel in the last 8 weeks: None household members: significant other housing: apartment number of children: 4 Review of Systems Review of Systems Review of systems:: unable to obtain Meds Home Medications and Allergies Home Medications Medication Instructions Recorded Confirmed Type aspirin 81 mg tablet,delayed 81 mg PO DAILY 30 days #100 tabs 05/20/23 12/13/23 Rx release clopidogrel 75 mg tablet 75 mg PO DAILY 30 days #30 tabs 07/04/23 12/13/23 Rx hydroxyzine pamoate 25 mg capsule 25 mg PO TIDP PRN Anxiety 07/09/23 12/13/23 History nitroglycerin 0.4 mg sublingual 0.4 mg sublingual Q5MINP PRN Chest 08/30/23 12/13/23 Rx tablet Pain #100 tabs furosemide 20 mg tablet 20 mg PO DAILYP PRN Edema #30 tabs 10/15/23 12/13/23 Rx phenytoin sodium extended 100 mg 100 mg PO 5XD seizures #150 caps 10/23/23 12/13/23 Rx capsule amlodipine 10 mg tablet 10 mg PO DAILY 30 days #30 tabs 11/18/23 12/13/23 Rx atorvastatin 80 mg tablet 80 mg PO DAILY 30 days #30 tabs 11/18/23 12/13/23 Rx duloxetine 60 mg capsule,delayed 60 mg PO DAILY 30 days #30 caps 11/18/23 12/13/23 Rx release isosorbide mononitrate 120 mg 120 mg PO DAILY 30 days #30 tabs 11/18/23 12/13/23 Rx tablet,extended release 24 hr lisinopril 5 mg tablet 5 mg PO DAILY 30 days #30 tabs 11/18/23 12/13/23 Rx metoprolol tartrate 100 mg tablet 100 mg PO BID 30 days #60 tabs 11/18/23 12/13/23 Rx paroxetine HCl 30 mg tablet (Paxil) 30 mg PO DAILY #30 tabs 11/18/23 12/13/23 Rx prazosin 2 mg capsule 2 mg PO DAILY 30 days #30 caps 11/18/23 12/13/23 Rx albuterol sulfate 90 mcg/actuation 1 puff inhalation Q4-6H #18 grams 11/28/23 12/13/23 Rx aerosol inhaler gabapentin 800 mg tablet 800 mg PO QID 12/13/23 12/13/23 History meclizine 12.5 mg tablet 12.5 mg PO BIDP PRN Dizziness 12/13/23 12/13/23 History mirtazapine 15 mg tablet 15 mg PO HS 12/13/23 12/13/23 History trazodone 50 mg tablet 50 mg PO HS 12/13/23 12/13/23 History New Prescriptions to Start Prescriptions: Allergies Allergy/AdvReac Type Severity Reaction Status Date / Time hydrocodone Allergy shortness Verified 11/28/23 11:32 of breath amitriptyline AdvReac Mild Nausea Verified 11/28/23 11:32 Exam Data for Last 24 hours Vital signs and Labs for Last 24 Hours: Temp Pulse Resp BP Pulse Ox O2 Del Method O2 Flow Rate 95.7 F L 55 L 18 93/52 L 97 Mechanical Ventilation 15 12/13/23 05:03 12/13/23 05:03 12/13/23 05:03 12/13/23 05:03 12/13/23 05:03 12/13/23 05:03 12/13/23 03:13 FiO2 60 12/13/23 04:39 Laboratory Results - last 24 hr 12/13/23 03:00: WBC 7.8, RBC 3.56 L, Hgb 11.5 L, Hct 34.2 L, MCV 96.2 H, MCH 32.4 H, MCHC 33.6, RDW 14.3, Plt Count 281, MPV 7.5, Neut % (Auto) 57.8, Lymph % (Auto) 31.6, [place] % (Auto) 7.0, Eos % (Auto) 3.2, Baso % (Auto) 0.4, Neut # (Auto) 4.5, Lymph # (Auto) 2.5, [place] # (Auto) 0.5, Eos # (Auto) 0.3, Baso # (Auto) 0.0, Sodium 133 L, Potassium 3.9, Chloride 106, Carbon Dioxide 20 L, Anion Gap 10.9, BUN 9, Creatinine 0.70, Estimated Creat Clear 137, Estimated GFR 115, Est GFR ( Amer) 139, Glucose 133 H, Calcium 8.0 L, Total Bilirubin 0.3, AST 36, ALT 21, Alkaline Phosphatase 71, Troponin I < 0.01, Total Protein 6.1 L, Albumin 3.6, Globulin 2.5, Albumin/Globulin Ratio 1.4, Salicylates < 1.0 L, Acetaminophen < 10 L, Plasma/Serum Alcohol 86 H 12/13/23 03:05: Urine Color Yellow, Urine Appearance Clear, Urine pH 6.0, Ur Specific [place] 1.010, Urine Protein Negative, Urine Glucose (UA) Negative, Urine Ketones Negative, Urine Blood Negative, Urine Nitrate Negative, Urine Bilirubin Negative, Urine Urobilinogen 0.2, Ur Leukocyte Esterase Negative, Urine RBC None, Urine WBC None, Ur Squamous Epith Cells None, Urine Bacteria None, Urine Opiates Screen Negative, Urine Methadone Screen Negative, Ur Barbituates Screen Negative, Ur Phencyclidine Scrn Negative, Ur Amphetamines Screen Negative, U Benzodiazepines Scrn Negative, Urine Cocaine Screen Negative, U Marijuana (THC) Screen Negative 12/13/23 03:36: Specimen Source Right radial, O2 % 50%, ABG pH 7.35, ABG pCO2 38.0, ABG pO2 132.9 H, ABG HCO3 20.3 L, ABG Total CO2 21.4 L, ABG O2 Saturation 98, ABG Base Excess -5.4 L, [place] Test Patient unable, Vent Rate 18, Tidal Volume 420, PEEP 5 Temp Pulse Resp BP Pulse Ox O2 Del Method O2 Flow Rate 97.3 F L 91 H 34 H 163/93 H 92 L Non-Rebreather 15 07/09/23 19:10 07/09/23 19:28 07/09/23 19:10 07/09/23 19:10 07/09/23 19:10 07/09/23 19:10 07/09/23 19:10 Laboratory Results - last 24 hr 07/09/23 19:07: WBC 11.8 H, RBC 4.65, Hgb 16.8, Hct 44.5, MCV 95.9 H, MCH 36.2 H , MCHC 37.8 H, RDW 13.9, Plt Count 309, MPV 8.1, Neut % (Auto) 51.3, Lymph % (Auto) 39.2, [place] % (Auto) 5.5, Eos % (Auto) 3.1, Baso % (Auto) 0.9, Neut # (Auto) 6.0, Lymph # (Auto) 4.6 H, [place] # (Auto) 0.7, Eos # (Auto) 0.4, Baso # (Auto) 0.1, Sodium 135 L, Potassium 3.8, Chloride 103, Carbon Dioxide 21 L, Anion Gap 14.8, BUN 11, Creatinine 0.80, Estimated Creat Clear 126, Estimated GFR 99, Est GFR ( Amer) 119, Glucose 250 H, Lactate 3.0 H, Calcium 7.9 L, Total Bilirubin 0.5, AST 49, ALT 36, Alkaline Phosphatase 122, Troponin I < 0.01, NT-Pro-B Natriuret Pep 818 H, Total Protein 7.6, Albumin 4.2, Globulin 3.4 H, Albumin/Globulin Ratio 1.2 07/09/23 19:16: VBG pH 7.18 L, VBG pCO2 48.6, VBG pO2 143.8 H, VBG HCO3 17.8 L, VBG Total CO2 19.3 L, VBG O2 Saturation 98.6 H, VBG Base Excess -10.5 L I & O for Last 24 hours: Intake & Output 12/10/23 12/11/23 12/12/23 12/13/23 23:59 23:59 23:59 23:59 Intake Total 2062.813 / 2062.813 Output Total 650 / 650 Balance 1412.813 / 1412.813 Weight 86.545 kg Intake & Output 07/06/23 07/07/23 07/08/23 07/09/23 23:59 23:59 23:59 23:59 Intake Total 2.30 / 2.30 Balance 2.30 / 2.30 Weight 90.718 kg *Routine HEENT Exam Head: Present normocephalic and atraumatic Eye: Present EOMI, PERRL and normal accommodation ENT: Present mucous membranes moist *Routine Neck Exam Neck: Present supple, full ROM and trachea midline *Routine Respiratory Exam Respiratory: Present patient mechanically ventilated *Routine Cardiovascular Exam Cardiovascular: Present RRR, Normal S1, Normal S2 and bradycardia *Routine Abdominal Exam Abdominal: Present soft and normoactive bowel sounds; Absent organomegaly *Routine Rectal Exam Rectal:: deferred *Routine Genitalia Exam Genitalia:: deferred *Routine Extremities Exam Extremities: Present full ROM and pulses intact; Absent cyanosis, clubbing or edema *Routine Skin Exam Skin: Present intact, dry and warm *Routine Neurological Exam Neurological: Present altered mental status Routine Psychiatric Exam Psychiatric: Present unable to assess H&P: Result Imaging and Cardiology EKG: Status: image reviewed by me, Preliminary report and final report Trauma scan : Status: image reviewed by me, Preliminary report and final report Assessment and Plan *Assessment and plan (1) Respiratory failure requiring intubation: Status: Acute Category: Medical Code(s): J96.90 - Respiratory failure, unspecified, unspecified whether with hypoxia or hypercapnia (2) Alcohol intoxication: Status: Acute Qualifiers: Complication of substance-induced condition: with unspecified complication Qualified Code(s): F10.929 - Alcohol use, unspecified with intoxication, unspecified Category: Medical Code(s): F10.929 - Alcohol use, unspecified with intoxication, unspecified (3) Coma: Status: Acute Qualifiers: Coma depth: [place] coma 3-8 Coma timing: at arrival to emergency dep artment Qualified Code(s): R40.2432 - [place] coma scale score 3-8, at arrival to emergency department Category: Medical Code(s): R40.20 - Unspecified coma (4) Anemia: Status: Acute Qualifiers: Anemia type: unspecified type Qualified Code(s): D64.9 - Anemia, unspecified Category: Medical Code(s): D64.9 - Anemia, unspecified (5) Seizures: Status: Acute Category: Medical Code(s): R56.9 - Unspecified convulsions (6) Hypertension: Status: Acute Qualifiers: Hypertension type: essential hypertension Qualified Code(s): I10 - Essential (primary) hypertension Category: Medical Code(s): I10 - Essential (primary) hypertension (7) COPD (chronic obstructive pulmonary disease): Status: Acute Qualifiers: COPD type: unspecified COPD Qualified Code(s): J44.9 - Chronic obstructive pulmonary disease, unspecified Category: Medical Code(s): J44.9 - Chronic obstructive pulmonary disease, unspecified (8) Hyperlipidemia: Status: Acute Qualifiers: Hyperlipidemia type: unspecified Qualified Code(s): E78.5 - Hyperlipidemia, unspecified Category: Medical Code(s): E78.5 - Hyperlipidemia, unspecified (9) Tobacco use: Status: Acute Category: Social Hx Code(s): Z72.0 - Tobacco use Plan 58-year-old male with PMHx of COPD, HTN, HLD, CHF, tobacco and alcohol user presented to the ER unresponsive. On arrival, patient is normotensive, satting appropriately on room air, GCS 3. Given Narcan by EMS prior to arrival without change. Full physical exam performed and significant for abrasions to the bilateral elbows. ET placement to protect airway. Findings discussed with ED. agreed for admission. Plan Respiratory failure requiring intubation and mechanical ventilation Alcohol intoxication presented with coma GCS of 3 admit patient. Dispo ICU mechanically vented. Respiratory therapist assisting with the care Pulmonary toileting on fentanyl and propofol Critical care consult Repeat ABG on levophed Monitor for renal output Keep n.p.o. Chest x-ray reviewed. Trauma screening catheter reviewed no acute signs of injury., No intracranial bleeding alcohol 80 mg/dl -Other chronic conditions HTN. hyperlipidemia, COPD Continue monitor. Patient on lisinopril metoprolol aspirin atorvastatin and amlodipine held in the setting of hypotension History of seizure: On phenytoin. monitoring Tobacco use: Nicotine patch Patient on Plavix. Protonix for GERD Full code Rounded on patient after nurse practitioner. Personally examined and interviewed patient. Agree with exam findings and care plan as documented. Patient did well today. Passed SBT this morning on rounds. Able to successfully extubate. Tolerating 2l nasal cannula. Speech to evaluate in the afternoon. Will advance diet as tolerated. Addressing pain with Tylenol, Toradol. Will have therapy evaluate patient in the morning. Ordered CBC, CMP, magnesium for the morning.
[2023-12-13] MEDS: NOREPINEPHRINE BITARTRATE/D5W 8 MG/250 ML PLAST..BAG 15 MG IV (05:20)
--- NOTE | 2023-12-13 05:23 | PC.NURSE ---
Per ER Attending, patient will remain in c-collar until he is able to express whether he feels pain in his neck or not. Cervical CT is negative at this time.
--- NOTE | 2023-12-13 05:26 | PC.NURSE ---
notified roundhouse firer/fireman of admission
--- NOTE | 2023-12-13 06:13 | PC.NURSE ---
Patient arrived to floor via stretcher from ED at 06:11.
[2023-12-13] MEDS: propofoL 100 ML 15.58 MG IV (06:42)
--- NOTE | 2023-12-13 07:04 | PC.NURSE ---
Report given to GRICELDA Toth at bedside
[2023-12-13 07:14] LABS: Troponin I < 0.01 ng/ml (0.00-0.034)
--- NOTE | 2023-12-13 08:30 | PC.NURSE ---
Fio2 decreased to 40% per dr catalan/ at this time.
--- NOTE | 2023-12-13 08:37 | HMH.PHAINT1 ---
Pharmacy Intervention Comments: HOME MEDICATION LIST VERIFIED USING LIST FROM OUTPATIENT PHARMACY
[2023-12-13 09:49] LABS: Troponin I < 0.01 ng/ml (0.00-0.034)
--- NOTE | 2023-12-13 10:23 | PC.WOUNDNOTE ---
Skin assessment start of shift
--- NOTE | 2023-12-13 10:32 | PC.NURSE ---
Addendum entered by Janey Gibbons RN 12/13/23 11:29: pt extubated at [address] Nael martinez. pt placed on 2lpm. prior to extubation pt vomited brown emesis with coffee ground appearance. aware. C Collar removed at this time as well per Dr Ge v/o Original Note: SBT started at approx 0930
--- NOTE | 2023-12-13 11:23 | PC.NURSE ---
Pt extubated at this time and placed on 2L NC
[2023-12-13] MEDS: PHENYTOIN SODIUM IV ×2 (12:30→21:37)
[2023-12-13] MEDS: SODIUM CHLORIDE 0.9% IV ×2 (12:30→21:37)
[2023-12-13 15:02] LABS: Basophils % 0.1 % (0.1-2.0); Eosinophils # 0.1 K/mm3 (0.0-0.4); Eosinophils % 1.3 % (0.1-12.0); Hematocrit 36.7 % (42.0-52.0); Hemoglobin 12.4 g/dL (14.1-18.0); Lymphocytes # 1.7 K/mm3 (0.7-4.5); Lymphocytes % 16.5 % (10-50); Mean Corpuscular HGB Conc 33.7 g/dL (31.8-35.4); Mean Platelet Volume 7.4 fl (7.4-10.4); Monocytes # 0.6 K/mm3 (0.1-1.0); Monocytes % 6.2 % (1.7-9.3); Neutrophils # 7.6 K/mm3 (1.8-7.8); Platelet Count 320 K/mm3 (142-424); Red Blood Count 3.86 M/mm3 (4.60-6.20); Red Cell Distribution Width 14.3 % (11.5-17.5)
[2023-12-13 15:20] LABS: Chloride 105 mmol/L (98-107)
[2023-12-13 15:21] LABS: Potassium 4.1 mmoL/L (3.5-5.1); Sodium 137 mmol/L (136-145)
[2023-12-13 15:23] LABS: Alanine Aminotransferase 27 U/L (12-78); Alkaline Phosphatase 99 U/L (38-126); Anion Gap 9.1 mEq/L (5-15); Aspartate Amino Transferase 45 U/L (17-59); Bilirubin,Total 0.3 mg/dl (0.2-1.3); Blood Urea Nitrogen 7 mg/dl (9-20); Carbon Dioxide 27 mmol/L (22.0-30.0); Creatinine Clearance Estimated 120 mL/min (50-200); Estimated Glomerular Filt Rate 99 ml/min (>60); GFR (African American) 119 ML/MIN (>60)
[2023-12-13 15:24] LABS: Albumin/Globulin Ratio 1.4 (1.1-1.8); Calcium 8.7 mg/dl (8.4-10.2); Globulin 2.8 g/dL (1.3-3.2); Glucose 109 mg/dl (74-100); Magnesium 1.8 mg/dl (1.6-2.3); Total Protein,Serum 6.8 g/dl (6.3-8.2)
[2023-12-13] MEDS: ASPIRIN EC 81MG TABLET 81 MG PO (16:52)
[2023-12-13] MEDS: GABAPENTIN 800MG TABLET 800 MG PO ×2 (16:52→21:37)
[2023-12-13] MEDS: CLOPIDOGREL 75MG TAB 75 MG PO (16:53)
--- NOTE | 2023-12-13 17:39 | HMH.SLDYSPHA ---
Speech & Language Evaluation Speech/Language Dysphagia Evaluation Start: 12/13/23 17:31 Freq: ONCE Status: Active Protocol: Document 12/13/23 17:31 MARTY (Rec: 12/13/23 17:39 [email or web address] [id number]) Dysphagia Assess/Goals/Plan Assessment Date of Evaluation: 12/13/23 Evaluation Type Initial Certification Assessment/Problems post-extubation protocol per MD order. Does Patient Qualify for Service No Qualify/Failure Comment Based on clinical observations made throughout the CSE, no further skilled speech therapy services 2' mastication/ manipulation of bolus and swallowing WFL. Recommendations PHYSICIAN CERTIFICATION: The specified therapy services are required, authorized, and reviewed every 30 days. Diet Recommendations Mechanical Soft Liquid Type Recommendations Normal/Thin SL Swallow Guidelines Alt bite w/sip thru meal, Standard Aspiration Prec. Dysphagia Swallow Precautions/Strategies Sitting Upright (90 deg),Small Bites and Sips,Alternate Liquids/Solids Plan Pt/Guardian verbally ack understanding Yes of dx/prognosis/goals G -code Required No Education Instructions provided Discussed diet recommendations and aspiration precautions with pt, nursing, and MD all of which expressed understanding. Pt/Caregiver able to recall information Able to recall/restate Reinforcement needed No Speech & Language HPI History Present Illness Description of Patient Problem ORTHOPEDICS PEDIATRIC PHYSICIAN pulled following information from chart review. 58-year-old male with PMHx of COPD, HTN, HLD, CHF, tobacco and alcohol user presented to the ER unresponsive. History taken form chart review, police report and ED documentation. The above per ED physician: Per police and EMS, patient was found wandering around downtown, smells of alcohol, reported drinking. He had fallen multiple times. EMS attempted to arrest him and he fell backwards striking the back of his head. He did not lose consciousness at that time. He was then arrested and taken somewhere else in police custody where he was noted to slump over and become unresponsive. EMS reports that he has had normal vital signs and has been maintaining his airway, but he has been unresponsive to verbal or painful stimuli. EMS gave IV Narcan with no change Intubated on arrival to protect airway. admitted for further management. Extubated early afternoon, same day. Rehab Services Assessed Speech therapy Language Primary Language Lao General Information General Current Food Consistancy NPO Dentition Edentulous Oxygen Status Nasal Cannula Patient Orientation Person,Place,Time,Situation Ability to Follow Directions Good Communication Ability No Impairment Dysphagia:Food Presentation Evaluation Food Type Pureed,Mechanical Soft,Liquid, Pudding Dysphagia Evaluation Summary Pt was A&Ox4 and oral care was provided prior to administering bolus trials. He was seen sitting upright in bed. Pt was edentulous and reported to not wear dentures; no regular solid was trialled 2' to this. Pt was administered all bolus consistencies x3 to assess for consistency and potential fatigue. He was administered the following with no overt s/ sxs of aspiration and/or distress or discomfort: thin liquids (open cup/straw, two consecutive sips open cup/ straw), pudding, puree( applesauce), and mechanical soft (nutrigrain bar.) Nursing reports he did well with medicine administration of pill. O2 sats stayed in high 90s throughout CSE. No further skilled speech therapy services are warranted at this time. Diet recommendation: mechanical soft chopped with thin liquids. Stroke Dysphagia Assessment PHYSICIAN CERTIFICATION: I certify the specified therapy services for Sha Hses are required, authorized, and reviewed every 30 days.
[2023-12-13] MEDS: ONDANSETRON 4MG/2ML VIAL 4 MG IV (21:39)
[2023-12-14] VITALS: BP 196/92; PULSE 60; PULSE 73; RESP 18; TEMP 37; O2SAT 95
--- NOTE | 2023-12-14 00:14 | PC.NURSE ---
Was notified by SRNA that patient's BP was 196/92. Night FOAM FABRICATOR notified of this BP and new orders pending
[2023-12-14] MEDS: HYDRALAZINE 20MG/ML VIAL 10 MG IV (00:27)
[2023-12-14 03:51] VITALS: BMI 28.9
[2023-12-14 04:00] VITALS: BP 183/90; PULSE 70; PULSE 75; RESP 18; TEMP 37.1; O2SAT 96
[2023-12-14 07:32] LABS: Basophils % 0.2 % (0.1-2.0); Eosinophils % 0.1 % (0.1-12.0); Hematocrit 39.9 % (42.0-52.0); Lymphocytes # 1.2 K/mm3 (0.7-4.5); Lymphocytes % 10.7 % (10-50); Mean Corpuscular HGB Conc 36.2 g/dL (31.8-35.4); Mean Corpuscular Hemoglobin 34.5 pg (27.0-31.2); Mean Corpuscular Volume 95.4 fl (80-94); Mean Platelet Volume 7.8 fl (7.4-10.4); Monocytes # 0.6 K/mm3 (0.1-1.0); Monocytes % 5.9 % (1.7-9.3); Neutrophils # 8.9 K/mm3 (1.8-7.8); Platelet Count 301 K/mm3 (142-424); Red Blood Count 4.18 M/mm3 (4.60-6.20); Red Cell Distribution Width 14.2 % (11.5-17.5); White Blood Count 10.8 K/mm3 (4.8-10.8)
[2023-12-14 07:33] LABS: Alanine Aminotransferase 27 U/L (12-78); Albumin Level 4.2 g/dl (3.5-5.0); Albumin/Globulin Ratio 1.3 (1.1-1.8); Alkaline Phosphatase 116 U/L (38-126); Anion Gap 8.4 mEq/L (5-15); Aspartate Amino Transferase 41 U/L (17-59); Bilirubin,Total 0.8 mg/dl (0.2-1.3); Blood Urea Nitrogen 7 mg/dl (9-20); Calcium 8.9 mg/dl (8.4-10.2); Carbon Dioxide 28 mmol/L (22.0-30.0); Chloride 100 mmol/L (98-107); Creatinine Clearance Estimated 160 mL/min (50-200); Estimated Glomerular Filt Rate 137 ml/min (>60); GFR (African American) 166 ML/MIN (>60); Globulin 3.3 g/dL (1.3-3.2); Glucose 140 mg/dl (74-100); Magnesium 1.9 mg/dl (1.6-2.3); Phosphorous 3.5 mg/dl (2.5-4.5); Potassium 4.4 mmoL/L (3.5-5.1); Sodium 132 mmol/L (136-145); Total Protein,Serum 7.5 g/dl (6.3-8.2)
[2023-12-14 07:34] LABS: Hemoglobin 14.4 g/dL (14.1-18.0)
[2023-12-14 07:55] VITALS: O2SAT 96
[2023-12-14 08:00] VITALS: BP 177/79; PULSE 70; PULSE 74; RESP 18; TEMP 37.3; O2SAT 98
[2023-12-14] MEDS: AMLODIPINE 10MG TABLET 10 MG PO (09:42)
[2023-12-14] MEDS: ATORVASTATIN 40MG TABLET 80 MG PO (09:42)
[2023-12-14] MEDS: DULOXETINE 30MG CAPSULE.DR 60 MG PO (09:42)
[2023-12-14] MEDS: GABAPENTIN 800MG TABLET 800 MG PO ×2 (09:42→13:20)
[2023-12-14] MEDS: LISINOPRIL 5MG TABLET 5 MG PO (09:43)
[2023-12-14] MEDS: PHENYTOIN 100MG CAPSULE 100 MG PO ×2 (09:43→13:20)
[2023-12-14] MEDS: METOPROLOL TARTRATE 50MG TABLET 100 MG PO (09:43)
[2023-12-14] MEDS: ISOSORBIDE MONO 60MG TAB.ER.24H 120 MG PO (09:43)
[2023-12-14] MEDS: PARoxetine 20MG TABLET 30 MG PO (09:44)
[2023-12-14] MEDS: PRAZOSIN 1MG CAP 2 MG PO (09:44)
[2023-12-14] MEDS: ASPIRIN EC 81MG TABLET 81 MG PO (09:50)
[2023-12-14] MEDS: CLOPIDOGREL 75MG TAB 75 MG PO (09:50)
--- NOTE | 2023-12-14 11:00 | PC.NURSE ---
pt turned o2 from 2L NC to RA tolerating well noted at 96%. aware.
[2023-12-14 12:00] VITALS: BP 144/86; PULSE 70; PULSE 72; RESP 18; TEMP 36.6; O2SAT 94
--- NOTE | 2023-12-14 15:04 | EXP.DC.SUM ---
General Admission date:: 12/13/23 Discharge date: 12/14/23 HPI HPI HPI: This is a 58-year-old male with PMHx of COPD, HTN, HLD, CHF, tobacco and alcohol user presented to the ER unresponsive. History taken form chart review, police report and ED documentation. the above per ED physician: Per police and EMS, patient was found wandering around downtown, smells of alcohol, reported drinking. He had fallen multiple times. EMS attempted to arrest him and he fell backwards striking the back of his head. He did not lose consciousness at that time. He was then arrested and taken somewhere else in police custody where he was noted to slump over and become unresponsive. EMS reports that he has had normal vital signs and has been maintaining his airway, but he has been unresponsive to verbal or painful stimuli. EMS gave IV Narcan with no change Intubated on arrival to protect airway. admitted for further management. Hospital Course Hospital Course Hospital Course: Mr. Hess is a 58-year-old male with PMHx of COPD, HTN, HLD, CHF, tobacco and alcohol user presented to the ER unresponsive. On arrival, patient is normotensive, satting appropriately on room air, GCS 3. Given Narcan by EMS prior to arrival without change. Full physical exam performed and significant for abrasions to the bilateral elbows. ET placement to protect airway. Findings discussed with ED. agreed for admission. Patient did well and was able to extubate within 24 hours after weaning sedation and showing improvement in mentation. Improved significantly back to baseline mentation by morning of discharge. Has some minor aches and pains due to his fall while being arrested. No overt trauma however. Stable to discharge home. Problems addressed as follows: Respiratory failure requiring intubation and mechanical ventilation Alcohol intoxication presented with coma GCS of 3 Admitted to the ICU for ventilator management. Patient did well through the night. Sedation was weaned and he passed an SBT by midday. Able to extubate to nasal cannula oxygen. Oxygen was continued to be weaned. Chest x-ray obtained showing no focal consolidation. Trauma screen performed with no focal injuries or fractures. No intracranial bleeding on head imaging. Patient gradually returned to baseline mentation. Was evaluated by speech therapy. Independently mobile. Tolerating p.o. intake. Alcohol on arrival was 80 mg/dL. Unclear the etiology of his altered mental status. He is on multiple medications that could alter his mental status. It is also reported in his citation from police that he hit his head on the concrete during their attempt to arrest him. Concerned this may have caused a concussion and his change in mentation. At this time he is alert and oriented x 4. Stable to discharge home. Recommend resuming home medications for chronic conditions and his medications for COPD, cholesterol, hypertension, seizure disorder, mood disorder. See med rec for full details. No seizures during admission. Total time spent on discharge 32 minutes in counseling, documentation, chart review, and direct care with patient. Exam Data for Last 24 hours Vital signs and Labs for Last 24 Hours: Temp Pulse Resp BP Pulse Ox O2 Del Method O2 Flow Rate 97.8 F 72 18 144/86 H 94 L Room Air 2 12/14/23 12:00 12/14/23 12:00 12/14/23 12:00 12/14/23 12:00 12/14/23 12:00 12/14/23 13:15 12/14/23 09:10 FiO2 40 12/13/23 11:00 Laboratory Results - last 24 hr 12/13/23 14:35: WBC 10.0 D, RBC 3.86 L, Hgb 12.4 L, Hct 36.7 L, MCV 95.0 H, MCH 32.0 H, MCHC 33.7, RDW 14.3, Plt Count 320, MPV 7.4, Neut % (Auto) 76.0, Lymph % (Auto) 16.5, [place] % (Auto) 6.2, Eos % (Auto) 1.3, Baso % (Auto) 0.1, Neut # (Auto) 7.6, Lymph # (Auto) 1.7, [place] # (Auto) 0.6, Eos # (Auto) 0.1, Baso # (Auto) 0.0, Sodium 137, Potassium 4.1, Chloride 105, Carbon Dioxide 27, Anion Gap 9.1, BUN 7 L, Creatinine 0.80, Estimated Creat Clear 120, Estimated GFR 99, Est GFR ( Amer) 119, Glucose 109 H, Calcium 8.7, Magnesium 1.8, Total Bilirubin 0.3, AST 45, ALT 27 D, Alkaline Phosphatase 99, Total Protein 6.8, Albumin 4.0 D, Globulin 2.8, Albumin/Globulin Ratio 1.4 12/14/23 06:30: WBC 10.8, RBC 4.18 L, Hgb 14.4 D, Hct 39.9 L, MCV 95.4 H, MCH 34.5 H, MCHC 36.2 H, RDW 14.2, Plt Count 301, MPV 7.8, Neut % (Auto) 83.0 H, Lymph % (Auto) 10.7, [place] % (Auto) 5.9, Eos % (Auto) 0.1, Baso % (Auto) 0.2, Neut # (Auto) 8.9 H, Lymph # (Auto) 1.2, [place] # (Auto) 0.6, Eos # (Auto) 0.0, Baso # (Auto) 0.0, Sodium 132 L, Potassium 4.4, Chloride 100, Carbon Dioxide 28, Anion Gap 8.4, BUN 7 L, Creatinine 0.60 L D, Estimated Creat Clear 160, Estimated GFR 137, Est GFR ( Amer) 166 D, Glucose 140 H D, Calcium 8.9, Phosphorus 3.5, Magnesium 1.9, Total Bilirubin 0.8, AST 41, ALT 27, Alkaline Phosphatase 116, Total Protein 7.5, Albumin 4.2, Globulin 3.3 H, Albumin/Globulin Ratio 1.3 I & O for Last 24 hours: Intake & Output 12/11/23 12/12/23 12/13/23 12/14/23 23:59 23:59 23:59 23:59 Intake Total 2411.626 / 2716.626 365 / 365 Output Total 2975 / 3775 1525 / 1525 Balance -563.374 / -1058.374 -1160 / -1160 Weight 86.545 kg 86.5 kg Constitutional Constitutional: no acute distress, average body habitus, chronically ill appearing and cooperative *Routine HEENT Exam Head: Present normocephalic Eye: Present EOMI and PERRL ENT: Present mucous membranes moist Comments: Minor bruising on left side of face and around neck. *Routine Neck Exam Neck: Present supple; Absent lymphadenopathy Routine Chest/Breast/Axilla Exam Chest wall: Absent tenderness *Routine Respiratory Exam Respiratory: Present CTA bilaterally; Absent rhonchi, wheezes or crackles *Routine Cardiovascular Exam Cardiovascular: Present RRR *Routine Abdominal Exam Abdominal: Present soft and normoactive bowel sounds; Absent tenderness *Routine Rectal Exam Patient deferred: visual exam *Routine Exam Patient deferred: penile exam *Routine Extremities Exam Extremities: Absent cyanosis, clubbing or edema Comments: Ecchymoses on arms, abrasion to right elbow *Routine Skin Exam Skin: Present warm; Absent rash *Routine Neurological Exam Neurological: Present alert, oriented X3 and moving all extremities; Absent altered mental status Results Data Completed and Pending Labs on day of discharge: Labs from last 24 hours 12/14/23 12/13/23 06:30 14:35 WBC 10.8 10.0 D RBC 4.18 L 3.86 L Hgb 14.4 D 12.4 L Hct 39.9 L 36.7 L MCV 95.4 H 95.0 H MCH 34.5 H 32.0 H MCHC 36.2 H 33.7 RDW 14.2 14.3 Plt Count 301 320 MPV 7.8 7.4 Neut % (Auto) 83.0 H 76.0 Lymph % (Auto) 10.7 16.5 [place] % (Auto) 5.9 6.2 Eos % (Auto) 0.1 1.3 Baso % (Auto) 0.2 0.1 Neut # (Auto) 8.9 H 7.6 Lymph # (Auto) 1.2 1.7 [place] # (Auto) 0.6 0.6 Eos # (Auto) 0.0 0.1 Baso # (Auto) 0.0 0.0 Sodium 132 L 137 Potassium 4.4 4.1 Chloride 100 105 Carbon Dioxide 28 27 Anion Gap 8.4 9.1 BUN 7 L 7 L Creatinine 0.60 L D 0.80 Estimated Creat Clear 160 120 Estimated GFR 137 99 Est GFR ( Amer) 166 D 119 Glucose 140 H D 109 H Calcium 8.9 8.7 Phosphorus 3.5 Magnesium 1.9 1.8 Total Bilirubin 0.8 0.3 AST 41 45 ALT 27 27 D Alkaline Phosphatase 116 99 Total Protein 7.5 6.8 Albumin 4.2 4.0 D Globulin 3.3 H 2.8 Albumin/Globulin Ratio 1.3 1.4 DS: Diagnosis Discharge Diagnosis (1) Respiratory failure requiring intubation: Status: Acute Code(s): J96.90 - Respiratory failure, unspecified, unspecified whether with hypoxia or hypercapnia (2) Alcohol intoxication: Status: Acute Code(s): F10.929 - Alcohol use, unspecified with intoxication, unspecified Qualifiers: Complication of substance-induced condition: with unspecified complication Qualified Code(s): F10.929 - Alcohol use, unspecified with intoxication, unspecified (3) Coma: Status: Acute Code(s): R40.20 - Unspecified coma Qualifiers: Coma depth: Sarahy coma 3-8 Coma timing: at arrival to emergency department Qualified Code(s): R40.2432 - Sarahy coma scale score 3-8, at arrival to emergency department (4) Anemia: Status: Acute Code(s): D64.9 - Anemia, unspecified Qualifiers: Anemia type: unspecified type Qualified Code(s): D64.9 - Anemia, unspecified (5) Seizures: Status: Acute Code(s): R56.9 - Unspecified convulsions (6) Hypertension: Status: Acute Code(s): I10 - Essential (primary) hypertension Qualifiers: Hypertension type: essential hypertension Qualified Code(s): I10 - Essential (primary) hypertension (7) COPD (chronic obstructive pulmonary disease): Status: Acute Code(s): J44.9 - Chronic obstructive pulmonary disease, unspecified Qualifiers: COPD type: unspecified COPD Qualified Code(s): J44.9 - Chronic obstructive pulmonary disease, unspecified (8) Hyperlipidemia: Status: Acute Code(s): E78.5 - Hyperlipidemia, unspecified Qualifiers: Hyperlipidemia type: unspecified Qualified Code(s): E78.5 - Hyperlipidemia, unspecified (9) Tobacco use: Status: Acute Code(s): Z72.0 - Tobacco use Meds Home Medications and Allergies Home Medications Medication Instructions Recorded Confirmed Type aspirin 81 mg tablet,delayed 81 mg PO DAILY 30 days #100 tabs 05/20/23 12/13/23 Rx release clopidogrel 75 mg tablet 75 mg PO DAILY 30 days #30 tabs 07/04/23 12/13/23 Rx hydroxyzine pamoate 25 mg capsule 25 mg PO TIDP PRN Anxiety 07/09/23 12/13/23 History nitroglycerin 0.4 mg sublingual 0.4 mg sublingual Q5MINP PRN Chest 08/30/23 12/13/23 Rx tablet Pain #100 tabs furosemide 20 mg tablet 20 mg PO DAILYP PRN Edema #30 tabs 10/15/23 12/13/23 Rx phenytoin sodium extended 100 mg 100 mg PO 5XD seizures #150 caps 10/23/23 12/13/23 Rx capsule amlodipine 10 mg tablet 10 mg PO DAILY 30 days #30 tabs 11/18/23 12/13/23 Rx atorvastatin 80 mg tablet 80 mg PO DAILY 30 days #30 tabs 11/18/23 12/13/23 Rx duloxetine 60 mg capsule,delayed 60 mg PO DAILY 30 days #30 caps 11/18/23 12/13/23 Rx release isosorbide mononitrate 120 mg 120 mg PO DAILY 30 days #30 tabs 11/18/23 12/13/23 Rx tablet,extended release 24 hr lisinopril 5 mg tablet 5 mg PO DAILY 30 days #30 tabs 11/18/23 12/13/23 Rx metoprolol tartrate 100 mg tablet 100 mg PO BID 30 days #60 tabs 11/18/23 12/13/23 Rx paroxetine HCl 30 mg tablet (Paxil) 30 mg PO DAILY #30 tabs 11/18/23 12/13/23 Rx prazosin 2 mg capsule 2 mg PO DAILY 30 days #30 caps 11/18/23 12/13/23 Rx albuterol sulfate 90 mcg/actuation 1 puff inhalation Q4-6H #18 grams 11/28/23 12/13/23 Rx aerosol inhaler gabapentin 800 mg tablet 800 mg PO QID 12/13/23 12/13/23 History meclizine 12.5 mg tablet 12.5 mg PO BIDP PRN Dizziness 12/13/23 12/13/23 History mirtazapine 15 mg tablet 15 mg PO HS 12/13/23 12/13/23 History trazodone 50 mg tablet 50 mg PO HS 12/13/23 12/13/23 History New Prescriptions to Start Prescriptions: Allergies Allergy/AdvReac Type Severity Reaction Status Date / Time hydrocodone Allergy shortness Verified 11/28/23 11:32 of breath amitriptyline AdvReac Mild Nausea Verified 11/28/23 11:32 Discharge Plan Disposition Patient Disposition: Home, Self-Care Condition: Fair Discharge Order Discharge Orders: Discharge Order (Routine); Ordered 12/14/23 Ordered By: Stevie Ge Follow up Plan Follow up with: Dionicio Garcia MD [Staff Physician] - Enter time for follow up (please call for follow up appointment) Prescriptions/Medication Reconciliation: Continued phenytoin sodium extended 100 mg capsule 100 mg PO 5XD Qty: 150 1RF albuterol sulfate 90 mcg/actuation HFA aerosol inhaler 1 puff INHALATION Q4-6H Qty: 18 2RF aspirin 81 mg tablet,delayed release (DR/EC) 81 mg PO DAILY 30 Days Qty: 100 3RF clopidogrel 75 mg tablet 75 mg PO DAILY 30 Days Qty: 30 5RF nitroglycerin 0.4 mg tablet, sublingual 0.4 mg sublingual Q5MINP PRN (Reason: Chest Pain) Qty: 100 2RF Rx Instructions: PLACE 1 TABLET UNDER THE TONGUE EVERY 5 TO 15 MINUTES NEEDED FOR CHEST PAIN. DO NOT EXCEED A TOTAL OF 3 DOSES IN 15 MINUTES. furosemide 20 mg tablet 20 mg PO DAILYP PRN (Reason: Edema) Qty: 30 2RF lisinopril 5 mg tablet 5 mg PO DAILY 30 Days Qty: 30 0RF amlodipine 10 mg tablet 10 mg PO DAILY 30 Days Qty: 30 0RF duloxetine 60 mg capsule,delayed release(DR/EC) 60 mg PO DAILY 30 Days Qty: 30 0RF Patient Comments: TAKE 1 CAPSULE 1 TIME EACH DAY paroxetine HCl [Paxil] 30 mg tablet 30 mg PO DAILY Qty: 30 0RF prazosin 2 mg capsule 2 mg PO DAILY 30 Days Qty: 30 0RF atorvastatin 80 mg tablet 80 mg PO DAILY 30 Days Qty: 30 2RF isosorbide mononitrate 120 mg tablet extended release 24 hr 120 mg PO DAILY 30 Days Qty: 30 2RF metoprolol tartrate 100 mg tablet 100 mg PO BID 30 Days Qty: 60 2RF trazodone 50 mg tablet 50 mg PO HS Rx Instructions: TAKE 1 TABLET 1 TIME EACH DAY AT BEDTIME meclizine 12.5 mg tablet 12.5 mg PO BIDP PRN (Reason: Dizziness) Rx Instructions: TAKE 1 TABLET 2 TIMES EACH DAY NEEDED FOR DIZZINESS gabapentin 800 mg tablet 800 mg PO QID mirtazapine 15 mg tablet 15 mg PO HS hydroxyzine pamoate 25 mg capsule 25 mg PO TIDP PRN (Reason: Anxiety) Problem Reconciliation Problems Reviewed?: Yes Patient Discharge Instructions ACTIVITY: Continue current activity DIET: continue same diet Patient Instructions: DI for Alcohol Use Disorder, DI for Respiratory Failure, Catheter-associated Urinary Tract Infection Providers Primary Care Provider: Provider,Referral Admit Provider: Stevie Ge Attending Provider: Stevie Ge
--- NOTE | 2023-12-14 16:49 | HMH.PTEV ---
Physical Therapy Evaluation Rehab PT IP Evaluation Start: 12/13/23 23:01 Freq: ONCE Status: Discharge Protocol: Document 12/14/23 16:42 [email or web address] (Rec: 12/14/23 16:49 [id number]) Subjective/History History History Pt is a 58 year old male that was admitted to [facility] after presenting to the ED unresponsive. Per police and EMS report patient was found wandering around downtown, smells of alcohol, reported drinking. He had fallen multiple times. EMS attempted to arrest him and he fell backwards striking the back of his head. He did not lose consciousness at that time. He was then arrested and taken somewhere else in police custody where he was noted to slump over and become unresponsive. EMS reports that he has had normal vital signs and has been maintaining his airway, but he has been unresponsive to verbal or painful stimuli. EMS gave IV Narcan with no change. Pt was intubated on arrival to protect airway. Pt was admitted for further management. PMH significant for COPD, HTN, HLD, CHF, tobacco and alcohol user . Subjective Subjective Pt presents standing in room, pleasant and agreeable to PT evaluation. Pt AOx4, reports 7 /10 low back and head pain at rest. Pt reports he is (I) with all activities at baseline. Pt reports he lives at home with his in an apartment with [address]. Pt denies reports of falls at home. Pt performed STS transfer, ambulation x250' with mod (I) and no AD. Pt demonstrates a wide based gait and decreased kira during ambulation, no LOB noted. Following evaluation, pt left seated in bedside chair with call light and all needs within reach. New diagnosis of cancer in past 12 No months? Rehab PT IP Eval Objective Appearance Patient Behavior Appropriate,Cooperative Patient Orientation Person,Place,Time,Situation Difficulty following instructions none Speech Pattern Clear,Appropriate Ambulation Patient Able to Ambulate Yes Ambulation Observation IP General Gait Pattern Observation Wide Based Gait,Shuffling Step Ambulation Distance (feet) 250 Ambulation Assistive Device None Ambulation Ability Independent Balance Ability to Arise Able, uses arms to help Sitting Balance Steady, safe Standing Balance Steady, wide stance Dynamic Sitting Balance Ability Good Dynamic Standing Balance Ability Good Transfers Sit to Stand Chair Transfer Ability Independent Pain Lower Back Pain Intensity 7 ROM All Extremities PT ROM Status WFL MMT All Extremities PT MMT WFL Rehab PT IP prob,goals,plan Problems Date of Evaluation: 12/14/23 PT IP Problems Other Other Pt Problem no skilled IP needs Rehab Potential Rehab Potential Innapropriate for Skilled Therapy Plan Other Intervention Plan n/a Discharge Plan PT Discharge Plan Pt participated in PT initial evaluation this date. Pt performed STS transfer and ambulated x250' with mod (I) and no AD. Pt demonstrates grossly 4+/5 BLE MMT. At this time, pt appears to be at functional baseline. No skilled PT interventions indicated at this time. Once medically stable, recommend pt to d/c home with support from and follow-up with OPPT to address chronic L hip pain. Eval Complexity Eval Charge Codes 90816 - Low Complexity PHYSICIAN CERTIFICATION: I certify the specified therapy services for Sha Hess are required, authorized, and reviewed every 30 days.
--- NOTE | 2023-12-16 12:59 | CARE MANAGER ---
Spoke with patient SO on the phone for discharge phone call, she states that patient is having issues with stomach pain. They have an appointment to see Dr. Garcia today at 2:30. No other issues noted.
== END 2023-12-14 15:36 | disposition home or self-care (01) | DRG 208 ==
LOC: ER 05:23 → 2ND 05:51
PROVIDERS: Admitting Provider Internal Medicine Adolescent Medicine; Emergency Provider Emergency Medicine; Visit Provider Internal Medicine Adolescent Medicine
DX: J96.00 Acute respiratory failure, unspecified whether with hypoxia or hypercapnia (principal); R40.20 Unspecified coma; F10.929 Alcohol use, unspecified with intoxication, unspecified; R40.2432 Glasgow coma scale score 3-8, at arrival to emergency department; Y90.4 Blood alcohol level of 80-99 mg/100 ml; E78.5 Hyperlipidemia, unspecified; J44.9 Chronic obstructive pulmonary disease, unspecified; G25.81 Restless legs syndrome; I10 Essential (primary) hypertension; F17.210 Nicotine dependence, cigarettes, uncomplicated; D64.9 Anemia, unspecified; R56.9 Unspecified convulsions
CPT/HCPCS: 36415; 51702; 70450; 70496; 70498; 71045; 71275; 72125; 72128; 72131; 74174; 80053; 80307; 80320; 80329; 81001; 82803; 83735; 84100; 84484; 85025; 87070; 87205; 92610; 93005; 94002; 97161; 99291; G0480; J0330; J2405; J2704; J3010; J7120; Q9967